=== PATIENT | male | born 1935 | race Caucasian/White ===

== ENCOUNTER 2017-04-21 11:49 | Emergency (ER) | payer MEDICARE ==
[~2017-04-21] VITALS: Ht 177.8 cm; Wt 68.3 kg
[~2017-04-21 11:49] MED LIST: ASPI325T PO; ATOR40TA PO; BUDE10.22 INH; LISI2.5T2 PO; METO50TA5 PO; MINO100C43 PO; TAMS0.4C47 PO
--- OUTSIDE RECORDS SUMMARY | 2017-04-21 11:55 | XMS REPORT | Referral Summary ---
Author Author [facility] Organization [facility] Address Unknown Phone Unavailable Encounter VC PAREDES [id number] Date(s): 06/25/15 - 07/08/15 [facility] [address] [place] [address] Final: ACUTE MYOCARDIAL INFARCTION, OF OTHER ANTERIOR WALL, INITIAL EPISODE OF CARE Final: URINARY TRACT INFECTION, SITE NOT SPECIFIED Final: ACUTE POSTHEMORRHAGIC ANEMIA Final: Other respiratory complications Final: Other specified forms of effusion, except tuberculous Final: OTHER EMPHYSEMA Final: CORONARY ATHEROSCLEROSIS OF [place] CORONARY ARTERY Final: RETENTION OF URINE, UNSPECIFIED Final: OTHER AND UNSPECIFIED HYPERLIPIDEMIA Final: TACHYCARDIA, UNSPECIFIED Final: SURGICAL OPERATION WITH ANASTOMOSIS, BYPASS, OR GRAFT, WITH NATURAL OR ARTIFICIAL TISSUES USED IMPLANT CAUSING ABNORMAL PATIENT REACTION, OR LATER COMPLICATION, WITHOUT MENTION OF MISADVENTURE AT TIME OF OPERATION Final: ACCIDENTS OCCURRING IN RESIDENTIAL INSTITUTION Discharge Diagnosis: CAD (coronary artery disease) Discharge Diagnosis: S/P CABG x 4 Discharge Disposition: 01-Home or Self Care Attending Physician: Miguelito Donovan MD Admitting Physician: Miguelito Donovan MD Vital Signs Most recent to 1 oldest [Reference Range]: Temperature Axillary 37.4 degC [35.2-36.7 degC] *HI* (07/06/15 8:00 PM) Temperature Oral 36.6 degC [35.8-37.3 degC] (07/08/15 12:43 PM) Temperature Tympanic 37.4 degC [36.6-38.1 degC] (07/05/15 1:14 AM) Temperature Skin 37.3 degC [36-37 degC] *HI* (07/04/15 4:00 AM) Temperature Temporal 37.4 degC Artery [36.3-37.8 (07/05/15 8:00 AM) degC] Peripheral Pulse 102 bpm Rate [60-100 bpm] *HI* (07/08/15 12:43 PM) Peripheral Pulse 106 bpm Rate with Activity (07/07/15 2:09 PM) Heart Rate Monitored 99 bpm [60-100 bpm] (07/07/15 10:37 AM) Respiratory Rate 20 br/min [14-20 br/min] (07/08/15 12:43 PM) Blood Pressure 98/63 mmHg [90-140/60-90 mmHg] (07/08/15 12:43 PM) Systolic Blood 121 mmHg Pressure with (07/07/15 2:09 PM) Activity Diastolic Blood 72 mmHg Pressure with (07/07/15 2:09 PM) Activity Mean Arterial 90 mmHg Pressure, Cuff (07/05/15 9:00 AM) Blood Pressure 107/40 mmHg Invasive (07/04/15 12:00 PM) [90-140/60-90 mmHg] Mean Arterial 171 mmHg Pressure, Invasive (07/04/15 2:00 PM) Pulse Rate [60-100 92 bpm bpm] (07/08/15 10:04 AM) SpO2 95 % (07/08/15 12:43 PM) Problem List Condition Effective Dates Status Health Status Informant Acute Active pain(Confirmed) At risk of pressure Active sore(Confirmed) Cardiac Active disorder(Confirmed)1 Knowledge Active deficit(Confirmed)2 Tissue perfusion Active alteration(Confirmed )3 1Problem added automatically by system based on initiation of Cardiac Output/ Ineffective Cardiac Perfusion Plan of Care 2Problem added automatically by system based on initiation of Knowledge Deficit Plan of Care 3Problem added automatically by system based on initiation of Tissue Perfusion Cerebral Plan of Care Allergies, Adverse Reactions, Alerts No Known Allergies Medications acetaminophen 325 mg oral tablet 650 mg 2 tabs, Oral, q4hr, Fever, 0 Refill(s) Start Date: 07/08/15 Status: Ordered aspirin 81 mg oral delayed release tablet 81 mg 1 tabs, Oral, Daily, 0 Refill(s) Start Date: 07/08/15 Status: Ordered Chloraseptic Menthol 1.4% topical spray 1 sprays, Topical, q1hr, Sore Throat, 0 Refill(s) Start Date: 07/08/15 Status: Ordered Colace 100 mg oral capsule 200 mg 2 caps, Oral, Daily, 0 Refill(s) Start Date: 07/08/15 Status: Ordered Flomax 0.4 mg oral capsule 0.4 mg 1 caps, Oral, Daily, # 30 caps, 0 Refill(s), other reason (Rx) Start Date: 07/08/15 Status: Ordered lansoprazole 15 mg, Oral, Once, 0 Refill(s) Start Date: 06/25/15 Status: Ordered Lasix 20 mg oral tablet 20 mg 1 tabs, Oral, Daily, # 30 tabs, 0 Refill(s), other reason (Rx) Start Date: 07/08/15 Status: Ordered Lipitor 40 mg oral tablet 40 mg 1 tabs, Oral, Daily, # 30 tabs, 0 Refill(s), other reason (Rx) Start Date: 07/08/15 Status: Ordered Lopressor 50 mg oral tablet 25 mg 0.5 tabs, Oral, TID, # 45 tabs, 0 Refill(s), other reason (Rx) Start Date: 07/08/15 Status: Ordered [place] 5 mg-325 mg oral tablet 1 tabs, Oral, q6hr, as needed for pain, 0 Refill(s) Start Date: 06/25/15 Status: Ordered ocular lubricant Eye-Both, q4hr, Dry Eyes, 0 Refill(s) Start Date: 07/08/15 Status: Ordered potassium chloride 20 mEq oral tablet, extended release 20 mEq 1 tabs, Oral, BID, # 60 tabs, 0 Refill(s), other reason (Rx) Start Date: 07/08/15 Status: Ordered Symbicort 160 mcg-4.5 mcg/inh inhalation aerosol 2 puffs, Inhalation, BID, 0 Refill(s) Start Date: 06/25/15 Status: Ordered Results Blood Gases Most recent to 1 oldest [Reference Range]: pH [7.35-7.45] 7.41 (07/04/15 4:28 AM) PCO2 Arterial POC 45 mmHg [35-45 mmHg] (07/03/15 2:43 PM) pCO2 Art [35-45 30 mmHg mmHg] *LOW* (07/04/15 4:28 AM) CO2 Totl Art [23-27 26 mEq/L mEq/L] (07/03/15 2:43 PM) Bicarbonate [22-26 19 mEq/L mEq/L] *LOW* (07/04/15 4:28 AM) Bicarbonate Arterial 25 mEq/L POC [22-26 mEq/L] (07/03/15 2:43 PM) Base Excess Arterial -1 POC [0-2] *LOW* (07/03/15 2:43 PM) Base Excess Art -5 [0-2] *LOW* (07/04/15 4:28 AM) O2 Sat Art 93.1 % [90.0-97.0 %] (07/04/15 4:28 AM) pO2 Art [80-100 68 mmHg mmHg] *LOW* (07/04/15 4:28 AM) O2 Saturation 100.0 % Arterial POC *HI* [90.0-97.0 %] (07/03/15 2:43 PM) pH Arterial POC 7.35 [7.35-7.45] (07/03/15 2:43 PM) PO2 Arterial POC 292 mmHg [80-100 mmHg] *HI* (07/03/15 2:43 PM) LPM Art 2.0 L/min (07/04/15 4:28 AM) O2 Panel Nasal Cannula (07/04/15 4:28 AM) Vent Mode SIMV (07/03/15 3:53 PM) Set Vt 450 mL (07/03/15 3:53 PM) Set Rate 12 br/min (07/03/15 3:53 PM) FiO2 Art [0-100] 40 (07/03/15 8:50 PM) PEEP 5.0 (07/03/15 8:50 PM) Inspiratory Time Art 0.90 (07/03/15 3:53 PM) Pressure Support Art 10 (07/03/15 3:53 PM) Tubing Compensation 100 % (07/03/15 8:50 PM) Spec Site A-Line (07/04/15 4:28 AM) pH Venous POC 7.27 [7.32-7.42] *LOW* (07/03/15 2:14 PM) PCO2 Venous POC 41 mmHg [41-51 mmHg] (07/03/15 2:14 PM) PO2 Venous POC 50 mmHg [80-100 mmHg] *LOW* (07/03/15 2:14 PM) Total CO2 Venous POC 20 mEq/L [25-29 mEq/L] *LOW* (07/03/15 2:14 PM) Bicarbonate Venous 19 mEq/L POC [24-28 mEq/L] *LOW* (07/03/15 2:14 PM) Base Excess Venous -8 POC [0-4] *LOW* (07/03/15 2:14 PM) O2 Saturation Venous 79.0 % POC [90.0-97.0 %] *LOW* (07/03/15 2:14 PM) Hematology Most recent to 1 oldest [Reference Range]: WBC [4.8-10.8 10.8 10*3/uL 10*3/uL] (07/07/15 5:43 AM) RBC [4.60-6.20 3.05 10*6/uL 10*6/uL] *LOW* (07/07/15 5:43 AM) Hgb [14.0-18.0 8.9 gm/dL gm/dL] *LOW* (07/07/15 5:43 AM) Hct [42.0-52.0 %] 26.8 % *LOW* (07/07/15 5:43 AM) MCV [82.0-99.0 fL] 87.9 fL (07/07/15 5:43 AM) MCH [27.0-32.0 pg] 29.2 pg (07/07/15 5:43 AM) MCHC [32.0-36.0 33.2 gm/dL gm/dL] (07/07/15 5:43 AM) RDW [11.5-14.5 %] 14.4 % (07/07/15 5:43 AM) Platelet [150-400 281 10*3/uL 10*3/uL] (07/07/15 5:43 AM) MPV [9.4-12.3 fL] 10.5 fL (07/07/15 5:43 AM) Immature 0.7 % Granulocytes (07/04/15 3:38 AM) [0.0-1.0 %] Neutrophils [51-75 80 % %] *HI* (07/04/15 3:38 AM) Lymphocytes [20-46 8 % %] *LOW* (07/04/15 3:38 AM) Monocytes [4-11 %] 11 % (07/04/15 3:38 AM) Eosinophils [0-4 %] 0 % (07/04/15 3:38 AM) Basophils [0-2 %] 0 % (07/04/15 3:38 AM) Neutro Absolute 8.49 10*3 [1.90-7.00 10*3] *HI* (07/04/15 3:38 AM) Lymph Absolute 0.88 10*3 [0.80-3.30 10*3] (07/04/15 3:38 AM) [place] Absolute 1.17 10*3 [0.30-1.00 10*3] *HI* (07/04/15 3:38 AM) Eos Absolute 0.02 10*3 [0.00-0.50 10*3] (07/04/15 3:38 AM) Baso Absolute 0.03 10*3 [0.00-0.20 10*3] (07/04/15 3:38 AM) Nucleated RBC 0.0 /100 WBC Automated [0 /100 (07/04/15 3:38 AM) WBC] Coagulation Most recent to 1 oldest [Reference Range]: INR [0.9-1.2] 1.3 *HI* (07/06/15 7:14 PM) PTT [25.0-35.0] 29.5 (07/06/15 7:14 PM) Fibrinogen Lvl 270 mg/dL [187-520 mg/dL] (07/03/15 2:12 PM) Chemistry Most recent to 1 oldest [Reference Range]: Sodium Lvl [136-144 138 mEq/L mEq/L] (07/07/15 5:43 AM) Potassium Lvl 4.4 mEq/L [3.6-5.1 mEq/L] (07/07/15 5:43 AM) Chloride [99-109 107 mEq/L mEq/L] (07/07/15 5:43 AM) CO2 [22-32 mEq/L] 23 mEq/L (07/07/15 5:43 AM) AGAP [3-20] 8 (07/07/15 5:43 AM) BUN [4-20 mg/dL] 30 mg/dL *HI* (07/07/15 5:43 AM) Glucose Lvl [70-100 101 mg/dL mg/dL] *HI* (07/07/15 5:43 AM) Creatinine Lvl 1.24 mg/dL [0.64-1.27 mg/dL] (07/07/15 5:43 AM) eGFR [>60] 56 1 *ABN* (07/07/15 5:43 AM) Calcium Lvl 8.4 mg/dL [8.6-10.0 mg/dL] *LOW* (07/07/15 5:43 AM) Albumin Lvl [3.5-4.8 3.5 gm/dL gm/dL] (06/25/15 1:29 PM) Total Protein 6.4 gm/dL [6.1-7.9 gm/dL] (06/25/15 1:29 PM) Globulin [1.9-4.3 2.9 gm/dL gm/dL] (06/25/15 1:29 PM) ALT [17-63 U/L] 31 U/L (06/25/15 1:29 PM) AST [15-41 U/L] 135 U/L *HI* (06/25/15 1:29 PM) Alk Phos [26-104 72 U/L U/L] (06/25/15 1:29 PM) Bili Total [0.2-1.2 0.7 mg/dL 2 mg/dL] (06/25/15 1:29 PM) Magnesium Lvl 2.1 mg/dL [1.8-2.5 mg/dL] (07/05/15 3:52 AM) Calcium Ionized 1.25 mmol/L [1.19-1.41 mmol/L] (07/05/15 3:52 AM) Troponin [<0.06 2.05 ng/mL 3 ng/mL] *HHI* (07/02/15 5:53 AM) Prealbumin [18-38 11 mg/dL mg/dL] *LOW* (07/02/15 5:53 AM) Sodium Arterial NPT 140 mEq/L [136-144 mEq/L] (07/03/15 2:43 PM) Potassium Arterial 4.6 mEq/L 4 NPT [3.6-5.1 mEq/L] (07/03/15 2:43 PM) Calcium Ionized 1.23 mmol/L Arterial NPT (07/03/15 2:43 PM) [1.19-1.41 mmol/L] HCT Arterial NPT 26.0 % (07/03/15 2:43 PM) HGB Arterial NPT 8.8 gm/dL (07/03/15 2:43 PM) Arterial Glucose NPT 89 mg/dL [70-100 mg/dL] (07/03/15 2:43 PM) Sodium Venous NPT 143 mEq/L [136-144 mEq/L] (07/03/15 2:14 PM) Potassium Venous NPT 4.2 mEq/L 5 [3.6-5.1 mEq/L] (07/03/15 2:14 PM) Calcium Ionized 1.26 mmol/L Venous NPT (07/03/15 2:14 PM) [1.19-1.41 mmol/L] Glucose Venous NPT 84 mg/dL [70-100 mg/dL] (07/03/15 2:14 PM) HCT Venous NPT 22.0 % (07/03/15 2:14 PM) HGB Kenneth NPT 7.5 gm/dL (07/03/15 2:14 PM) Activated Clotting 118 Time NPT [100-146] (07/03/15 2:13 PM) Blood Glucose, 117 mg/dL Capillary [74-106 *HI* mg/dL] (07/05/15 6:00 AM) Chol [0-200 mg/dL] 134 mg/dL (06/26/15 4:00 AM) Trig [0-150 mg/dL] 93 mg/dL (06/26/15 4:00 AM) HDL [>40 mg/dL] 37 mg/dL *ABN* (06/26/15 4:00 AM) LDL [0-100 mg/dL] 78 mg/dL (06/26/15 4:00 AM) VLDL Cholesterol 19 mg/dL [0-30 mg/dL] (06/26/15 4:00 AM) Cardiac Risk 3.6 [0.0-5.7] (06/26/15 4:00 AM) Hgb A1c [4.1-5.6 %] 5.7 % *HI* (07/02/15 5:53 AM) eAvg Glucose 116.9 mg/dL (07/02/15 5:53 AM) 1Result Comment: Multiply eGFR results by 1.21 for race. 2Result Comment: Naproxen, specifically the metabolite O-desmethylnaproxen, may cause spurious elevation in Total Bilirubin levels. 3Result Comment: Critical value called, and read-back verified. Called to Shea Baltazar RN ([facility]) 07/02/2015 10:50 4Result Comment: This test was performed on a whole blood specimen. The presence or absence of hemolysis cannot be assessed. Hemolysis can falsely elevate potassium levels. Normals are for venous specimens only. 5Result Comment: This test was performed on a whole blood specimen. The presence or absence of hemolysis cannot be assessed. Hemolysis can falsely elevate potassium levels. Normals are for venous specimens only. Urinalysis Most recent to 1 oldest [Reference Range]: UA Color Dk Yellow (07/01/15 2:43 PM) UA Appear Clear (07/01/15 2:43 PM) UA pH [5.0-8.0] 5.0 (07/01/15 2:43 PM) UA Leuk Est Trace [Negative] *ABN* (07/01/15 2:43 PM) UA Nitrite Negative [Negative] (07/01/15 2:43 PM) UA Protein Pos 1+ [Negative] *ABN* (07/01/15 2:43 PM) UA Glucose Negative [Negative] (07/01/15 2:43 PM) UA Ketones Trace [Negative] *ABN* (07/01/15 2:43 PM) UA Urobilinogen 1.0 mg/dL [<1.0 mg/dL] (07/01/15 2:43 PM) UA Bili [Negative] Negative (07/01/15 2:43 PM) UA Blood [Negative] Pos 3+ *ABN* (07/01/15 2:43 PM) UA Spec Grav 1.025 [1.003-1.030] (07/01/15 2:43 PM) Type Melgoza (07/01/15 2:43 PM) UA WBC [0-4] 2-5 (07/01/15 2:43 PM) UA RBC [0-2] 20-50 *ABN* (07/01/15 2:43 PM) Epithelial Cells 0-2 (07/01/15 2:43 PM) UA Bacteria Rare (07/01/15 2:43 PM) UA Mucous Present (07/01/15 2:43 PM) Blood Bank Results Most recent to 1 oldest [Reference Range]: ABO/Rh A POS (07/02/15 5:53 AM) Antibody Screen Tube NEG (07/02/15 5:53 AM) Microbiology Reports TEST: MRSA Screen Culture STATUS: Auth (Verified) BODY SITE: SOURCE: Nares COLLECTED DATE/TIME: 07/01/15 8:58 PM MRSA Screen Culture No Methicillin Resistant Staphylococcus aureus isolated. Immunizations No data available for this section Procedures Procedure Date Related Diagnosis Body Site Thoracentesis, needle or catheter, aspiration 07/07/15 of the pleural space; with imaging guidance Bypass Graft Coronary Artery1 07/03/15 [place] Vein Endoscopic (Right, Lower 07/03/15 Extremity)2 Hernia Rotator cuff tear3 1auto-populated from documented surgical case 2auto-populated from documented surgical case 3rotator cuff surgery to lanie taylor Social History Social History Type Response Smoking Status Former smoker; Type: Cigarettes; Tobacco use per day: More than 1 pack; Number of years: 40 Assessment and Plan No data available for this section
--- OUTSIDE RECORDS SUMMARY | 2017-04-21 11:55 | XMS REPORT | Continuity of Care Document ---
Author Author [facility] Organization [facility] Address Unknown Phone Unavailable Allergies Active Description Code Type Severity Reaction Onset Reported/Identified Relationship to Patient Clinical Status Yes No Known Allergies NKMA N/A N/A 06/25/2015 Yes No Known Medication Allergies NKMA N/A N/A 06/25/2015 Medications Problems Date Dx Coded Attending Type Code Diagnosis Diagnosed By 07/10/2015 Miguelito Donovan MD Final 272.4 OTHER AND UNSPECIFIED HYPERLIPIDEMIA 07/10/2015 Miguelito Donovan MD Final 285.1 ACUTE POSTHEMORRHAGIC ANEMIA 07/10/2015 Miguelito Donovan MD Final 410.11 ACUTE MYOCARDIAL INFARCTION, OF OTHER ANTERIOR WALL, INITIAL EPISODE OF CAR 07/10/2015 Miguelito Donovan MD Admitting 410.91 07/10/2015 Miguelito Donovan MD Final 414.01 CORONARY ATHEROSCLEROSIS OF [place] CORONARY ARTERY 07/10/2015 Miguelito Donovan MD Final 492.8 OTHER EMPHYSEMA 07/10/2015 Miguelito Donovan MD Final 511.89 Other specified forms of effusion, except tuberculous 07/10/2015 Miguelito Donovan MD Final 599.0 URINARY TRACT INFECTION, SITE NOT SPECIFIED 07/10/2015 Miguelito Donovan MD Final 785.0 TACHYCARDIA, UNSPECIFIED 07/10/2015 Miguelito Donovan MD Final 788.20 RETENTION OF URINE, UNSPECIFIED 07/10/2015 Miguelito Donovan MD Final 997.39 Other respiratory complications 07/10/2015 Miguelito Donovan MD Final E849.7 ACCIDENTS OCCURRING IN RESIDENTIAL INSTITUTION 07/10/2015 Miguelito Donovan MD Final E878.2 SURGICAL OPERATION WITH ANASTOMOSIS, BYPASS, OR GRAFT, WITH NATURAL OR DARVIN Procedures Code Description Performed By Performed On 00.40 Procedure on single vessel 06/25/2015 Results Encounters ACCT No. Visit Date/Time Discharge Status Pt. Type Provider Facility Loc./Unit Complaint [id number] 06/25/2015 12:56:00 2014 15:30:00 DIS Inpatient Venus MARIN, Miguelito [facility] F4SW acute [place]
[2017-04-21 11:57] VITALS: RESP 17; TEMP 97.4; Ht 177.8 cm; Wt 68.3 kg
[2017-04-21] MEDS ORDERED: ATOR20TA59 PO (12:25)
[2017-04-21] MEDS ORDERED: NORMAL SALINE 1,000 ML IV ONE (12:26)
--- NOTE | 2017-04-21 12:26 | ERPDOC ---
Departure Disposition Decision Date: April 21, 2017 Disposition Decision Time: 14:39 Disposition: 01 DISCHARGED HOME, SELF-CARE Impression Impression Impression: Primary Impression: Obstructive uropathy Severity: Moderate Condition: Improved Seen By: Physician only Referrals: OTHER (Family) DOMITILA LACEY MD Patient Instructions: Melgoza Catheter Placement and Care (ED) Problems/Meds/Labs Reviewed?: Yes Medications reviewed and manag: Yes Additional Instructions: Please keep catheter in place until you see urology. Recommend he follow up with urology in the next 3 days. Follow up care ordered?: Yes Mental Status: Alert, Oriented HPI - Male General Chief Complaint: Male Urogenital Problems Stated Complaint: UNABLE TO URINATE Time Seen by Provider: 12:12 HPI - Male Initial Comments 82-year-old gentleman with approximately 2 weeks of urinary issues. He is actually not been able to P except for small dribble over the last 2 days. His stomach is distended and quite painful. No fevers or chills. No nausea vomiting. Pain is 8-9 out of 10. He has not had this before, as far as he knows he has no prostate problems. He was recently started on Bumex and when they read the label with the warning that if your urine output decreases he would need to speak with his doctor, they called the office and were sent to the emergency department. Allergies: Coded Allergies: No Known Allergies (Unverified , 04/21/17) Past History Past Medical History Metabolic: hypercholesterolemia Cardiac: CAD, CHF, other Respiratory: COPD GI: GERD Musculoskeletal: osteoarthritis Surgical History Denies Surgeries General: hernia Cardiac: cardiac bypass Joint: shoulder Family History Family PMH: FOUND: CAD Vaccines Hx Influenza Vaccination: Yes () Hx Pneumococcal Vaccination: Yes (IN THE LAST 5 YEARS) Social History Smoking Status: Never smoker Substance Use Type: does not use Alcohol Intake: none Record Review Pertinent history updated: Yes Review of Systems General: see HPI Male: see HPI Physical Exam General General Nourishment: adult, thin, acute distress Distress Description Stresses from pain. Vitals and Pain First Documented Vital Signs Date Time Temp Pulse Resp B/P Pulse Ox O2 Delivery O2 Flow Rate FiO2 04/21/17 11:57 97.4 71 17 114/69 93 Room Air Weight: Kilograms: 68.300 Height (feet): 5 Height (inches): 10.00 Triage Pain Scale: Normal Exams: Head: Normocephalic w/o trauma Chest/Resp: Clear all chaudhari, with good airflow, and symmetry bilaterally CV: Regular rate and rhythm, without murmur or gallop, Pulses 2+ all extremities, capillary refill, <2 seconds all ext., no pedal edema noted Abdomen: Bowel sounds positive Neurologic: Patient is alert, and oriented, cranial nerves, motor/sensory/ cerebellar, exams w/o gross deficits, to observation Psychiatric: Patient exhibits, appropriate attention, emotion and affect Abdomen (brief) Comments Positive bowel sounds, patient's pelvis is distended with obvious mass palpable and painful. Differential Diagnoses Considering: Epididymitis, Hematuria, Prostatitis, Urethritis, UTI Progress Results/Orders Orders Procedure Category Date Status Time Iv Lock (Ed Only) EDM 04/21/17 Transmitted 12:26 Cbc W/Auto LAB 04/21/17 Complete Diff-Reflex Manual 12:26 Cmp - Comprehensive LAB 04/21/17 Complete Metabolic 12:26 Ua, Dip Wreflex LAB 04/21/17 Complete Microsc & Business Architect 12:26 Ct Abd/Pelvis W/O CT 04/21/17 Resulted Contrast 12:26 Melgoza (Ed) EDM 04/21/17 Transmitted 12:26 Normal Saline (Normal PHA 04/21/17 Complete Saline Iv) 12:26 Catheter Needs ISIDRO 04/21/17 In Process Assessment 12:26 Bladder Scanner (Ed) EDM 04/21/17 Transmitted 12:26 Psa, Screen Total - LAB 04/21/17 In Process AMS 12:26 Normal Saline (Ns) PHA 04/21/17 Complete 14:15 Probnp LAB 04/21/17 In Process 14:12 Lab Results Laboratory Tests Test 04/21/17 12:39 White Blood Count 6.2T/MM3 Red Blood Count 4.52M/MM3 Hemoglobin 12.3GM/DL Hematocrit 37.6% Mean Corpuscular Volume 83.2UM3 Mean Corpuscular Hemoglobin 27.2UUG Mean Corpuscular Hemoglobin Concent 32.7GM/DL RDW Standard Deviation 54.9FL Platelet Count 140T/MM3 Mean Platelet Volume 10.9UM3 Immature Granulocyte % (Auto) 0.2% Neutrophils (%) (Auto) 58.5% Lymphocytes (%) (Auto) 27.7% Monocytes (%) (Auto) 11.8% Eosinophils (%) (Auto) 1.6% Basophils (%) (Auto) 0.2% Absolute Immature Granulocyte (auto 0.01T/MM3 Absolute Neutrophils (auto) 3.6T/MM3 Absolute Lymphocytes (auto) 1.7T/MM3 Absolute Monocytes (auto) 0.7T/MM3 Absolute Eosinophils (auto) 0.1T/MM3 Absolute Basophils (auto) 0.0T/MM3 Urine Collection Type Straight cath Urine Color Yellow Urine Turbidity Clear Urine pH 5.5 Urine Specific [place] <=1.005 Urine Protein Negative Urine Glucose (UA) Negative Urine Ketones Negative Urine Blood Trace-intact Urine Nitrite Negative Urine Bilirubin Negative Urine Urobilinogen 0.2EU/DL Urine Leukocyte Esterase Negative Urinalysis Comment Microscopic not ind. Turbidity < 20 Sodium Level 138MEQ/L Potassium Level 4.5MEQ/L Chloride Level 97MEQ/L Carbon Dioxide Level 28MEQ/L Anion Gap 13MEQ/L Blood Urea Nitrogen 47.0MG/DL Creatinine 1.8MG/DL Glomerular Filtration Rate Calc 36 BUN/Creatinine Ratio 26RATIO Glucose Level 86MG/DL Calculated Osmolality 277MOSM/KG Calcium Level 9.3MG/DL Total Bilirubin 1.20MG/DL Icterus Index < 2 Aspartate Amino Transf (AST/SGOT) 24U/L Alanine Aminotransferase (ALT/SGPT) 36U/L Alkaline Phosphatase 98U/L GG-Bgo-H-Type Natriuretic Peptide Pending Total Protein 7.3G/DL Albumin 4.1G/DL Globulin 3.2G/DL Albumin/Globulin Ratio 1.3RATIO Prostate Specific Antigen Screen Pending Chemistry Specimen Hemolysis < 15 Medications Current ED Medications Sodium Chloride 1,000 ml @ 500 mls/hr Q2H ONCE IV Last administered on t 12:48; Start 04/21/17 at 12:26; Stop 04/21/17 at 14:25; Status DC Sodium Chloride (NS) 500 ml @ 0 mls/hr Q0M ONCE IV ; Start 04/21/17 at 14:15; Stop 04/21/17 at 14:20; Status DC Progress Progress Obstructive uropathy noted. CT abdomen and pelvis is negative except for enlargement of bladder. Melgoza catheter placed and Patient had greater than 3 L total removed from bladder through Melgoza catheter. This was done in stages to allow the bladder to relax. He did have elevated creatinine and BUN. I think he is intravascularly depleted while fluid overloaded as far as congestive heart failure. Recommend he continue the Bumex at half dose but increase fluids until he sees urology. He would like to go home and I think this is reasonable to treat outpatient as long as he follows up carefully. HUMBLE STRINGER MD April 21, 2017 12:26
[2017-04-21] MEDS ORDERED: LISI-625 PO (12:27)
[2017-04-21] MEDS ORDERED: METO100T5 PO (12:27)
[2017-04-21] MEDS ORDERED: BUME1TAB17 PO (12:28)
[2017-04-21] MEDS ORDERED: POTA-81 PO (12:28)
--- NOTE | 2017-04-21 12:33 | NUR ---
RAMESH RAMESH CLAMPED AFTER 2600 ML UOP
[2017-04-21 12:54] LABS: BASOPHILS % (AUTO) 0.2 % (0-2); EOSINOPHILS # (AUTO) 0.1 T/MM3 (0-0.5); EOSINOPHILS % (AUTO) 1.6 % (0-4); HCT - HEMATOCRIT 37.6 % (41-53); HGB - HEMOGLOBIN 12.3 GM/DL (13.5-17.5); IMMATURE GRANULOCYTE # (AUTO) 0.01 T/MM3 (0.00-0.03); IMMATURE GRANULOCYTE % (AUTO) 0.2 % (0.0-0.5); LYMPHOCYTES # (AUTO) 1.7 T/MM3 (1-4.8); LYMPHOCYTES % (AUTO) 27.7 % (23-45); MEAN CORPUSCULAR HGB 27.2 UUG (26-34); MEAN CORPUSCULAR HGB CONC(MCHC 32.7 GM/DL (31-37); MEAN CORPUSCULAR VOLUME 83.2 UM3 (80-100); MEAN PLATELET VOLUME 10.9 UM3 (9.4-12.4); MONOCYTES # (AUTO) 0.7 T/MM3 (0-0.8); MONOCYTES % (AUTO) 11.8 % (0-9.0); NEUTROPHILS #(AUTO)-ABSOLUTE 3.6 T/MM3 (1.8-7.7); NEUTROPHILS % (AUTO) 58.5 % (33-66); RED BLOOD COUNT 4.52 M/MM3 (4.50-5.90); WBC - WHITE BLOOD COUNT 6.2 T/MM3 (4.5-11.0)
[2017-04-21 12:56] LABS: BLOOD, URINE TRACE-INTACT (NEGATIVE); COLOR,URINE YELLOW (YELLOW); LEUKOCYTE ESTERASE ,URINE NEGATIVE (NEGATIVE); NITRITE,URINE NEGATIVE (NEGATIVE); UROBILINOGEN,URINE 0.2 EU/DL (NORMAL)
[2017-04-21 13:08] LABS: ALBUMIN 4.1 G/DL (3.5-5.0); ALBUMIN/GLOBULIN RATIO 1.3 RATIO (1.1-2.2); ALKALINE PHOSPHATASE 98 U/L (38-126); ALT (SGPT) 36 U/L (21-72); ANION GAP 13 MEQ/L (5-15); AST (SGOT) 24 U/L (17-59); BUN/CREATININE RATIO 26 RATIO (6-26); CALCIUM 9.3 MG/DL (8.4-10.2); CHLORIDE 97 MEQ/L (98-107); CO2 - CARBON DIOXIDE 28 MEQ/L (22-30); CREATININE 1.8 MG/DL (0.8-1.5); GLOMERULAR FILTRATION RATE 36; GLUCOSE 86 MG/DL (75-110); POTASSIUM 4.5 MEQ/L (3.6-5); SODIUM 138 MEQ/L (134-144); TOTAL PROTEIN 7.3 G/DL (6.3-8.2)
--- OUTSIDE RECORDS SUMMARY | 2017-04-21 13:15 | XMS REPORT | Continuity of Care Document ---
Author Author [facility] Organization [facility] Address Unknown Phone Unavailable Allergies Active [...] Donovan MD Final 414.01 CORONARY ATHEROSCLEROSIS OF [place] CORONARY ARTERY 07/10/2015 Miguelito Donovan MD Final [...] Status Pt. Type Provider Facility Loc./Unit Complaint [id number] 06/25/2015 12:56:00 2014 15:30:00 DIS Inpatient Venus MARIN, Miguelito [facility] F4SW acute [place]
--- NOTE | 2017-04-21 13:35 | NUR ---
RAMESH RAMESH UNCLAMPED
--- NOTE | 2017-04-21 13:56 | DI ---
Indication: ITS.REASON: urinary retention, pain CT ABD/PELVIS W/O CONTRAST: Comparison: None Technique: Patient scanned from above the diaphragm to below the pubic symphysis without either oral or IV contrast using dose reduction imaging technology and reformatted sagittal and coronal images. Findings: Patient shows chronic changes in both lung bases with an enlarged heart and a permanent pacemaker in place. Liver is homogeneous in texture. No biliary ductal dilatation identified. Believe the gallbladder is still visualized. The patient shows multiple vascular clips about the right side of the abdomen. Spleen is unremarkable. Pancreas and adrenals are unremarkable. Both kidneys are visualized without marked obstructive change mass cysts or calcifications. Arteriosclerotic calcifications identified in a nondilated aorta. Imaging into the pelvis demonstrates a distended bladder with a catheter in place. Reformatted imaging showed degenerative disc changes particularly prominent at L4-5 and L5-S1 in the lumbar spine Impression: 1. Fairly significant chronic lung disease with an enlarged heart with a permanent pacemaker although, no pleural effusions are identified. 2. Prior postoperative changes in the right side of the abdomen although, no suggestion of obstruction or acute inflammatory change noted in the bowel. 3. No obstructive uropathy identified although, the bladder does seem distended with a catheter in place. .
--- NOTE | 2017-04-21 14:05 | NUR ---
PROVIDER DR STRINGER TO BEDSIDE TO DISCUSS POC
--- NOTE | 2017-04-21 14:06 | NUR ---
UOP 750 ML PALE YELLOW URINE OUT OF RAMESH
--- NOTE | 2017-04-21 14:07 | NUR ---
IV RATE IVF INCREASED TO 999ML/HR
[2017-04-21] MEDS ORDERED: NORMAL SALINE 500 ML IV ONE (14:15)
[2017-04-21 15:24] VITALS: BP 99/54; PULSE 60; O2SAT 96
--- NOTE | 2017-04-21 15:25 | NUR ---
URINE BAG LEG BAG GIVEN, RN CHANGES BAG INSTRUCTING PATIENT ON HOW TO CHANGE BAG.
== END 2017-04-21 15:24 | disposition home or self-care (01) ==
LOC: ED 11:49
DX: N13.9 Obstructive and reflux uropathy, unspecified (principal); R19.09 Other intra-abdominal and pelvic swelling, mass and lump; Z79.899 Other long term (current) drug therapy
CPT/HCPCS: 51702; 74176; 80053; 81003; 83880; 85025; 96360; 96361; 99284; G0103; J7030

== ENCOUNTER 2017-08-19 12:37 | Observation (INO) ==
--- NOTE | 2017-08-19 13:08 | Emergency Department Report ---
General Adult HPI - General Chief complaint: Extremity Problem,Nontraumatic <Ben Pisano Kraig 08/19/17 16: 56> Stated complaint: Pain in L arm, confused <Ben Pisano Kraig 08/19/17 16:56> Time Seen by Provider: 08/19/17 12:44 <PisanoBen 08/19/17 16:56> Source: patient <Chelsea Smith 08/19/17 13:10> Mode of arrival: wheelchair <Chelsea Smith Sonya 08/19/17 13:10> Limitations: no limitations <Chelsea Smith Sonya Hallie 08/19/17 13:10> - History of Present Illness HPI narrative: Pt presents with a C/O arm weakness and pain, primarily left but has been both for about 1 week. Unable to use turn signal this am 2/2 weakness. Pt denies, chest pain, nausea, SOA, blurred or double vision, diaphoresis, CROCKETT, HE states nothing makes the pain worse or better. Has not taken anything for pain. Has extensive cardiac history <Chelsea Smith Sonya 08/19/17 13:10> Onset (ago): day(s) <Chelsea Smith 08/19/17 13:10> Location: upper extremity <Chelsea Smith 08/19/17 13:10> Radiation: non-radiation <Chelsea Smith 08/19/17 13:10> Severity: mild <Chelsea Smith 08/19/17 13:10> Quality: other <Chelsea Smith 08/19/17 13:10> Consistency: constant <Chelsea Smith 08/19/17 13:10> Relieving factors: none <Chelsea Smith 08/19/17 13:10> Exacerbating factors: none <Chelsea Smith 08/19/17 13:10> Associated symptoms: denies other symptoms <Chelsea Smith 08/19/17 13: 10> - Related Data Home Medications Medication Instructions Recorded Confirmed Aspirin 325 mg PO DAILY #0 tab 11/30/15 08/19/17 Budesonide/Formoterol 80/4.5 2 puff INH BID PRN #0 gm 12/05/15 08/19/17 [Symbicort Inhaler] Atorvastatin Calcium 10 mg PO HS #0 04/21/17 08/19/17 Bumetanide 0.5 mg PO BID #0 04/21/17 08/19/17 Metoprolol Tartrate 50 mg PO BIDWM #0 04/21/17 08/19/17 Potassium Chloride 20 meq PO WB #0 04/21/17 08/19/17 Finasteride [Proscar] 5 mg PO DAILY 08/19/17 08/19/17 <Ben Pisano 08/19/17 16:56> Allergies Allergy/AdvReac Type Severity Reaction Status Date / Time No Known Allergies Allergy Unverified 08/19/17 12:51 <Ben Pisano 08/19/17 16:56> Review of Systems All systems: reviewed and negative except as stated <Chelsea Smith 13:10> Constitutional: Reports: weakness <Chelsea Smith 08/19/17 13:10> Respiratory: Reports: dyspnea (COPD hx) <Chelsea Smith 08/19/17 13:10> Genitourinary: Reports: other (self caths) <Chelsea Smith 08/19/17 13: 10> Musculoskeletal: Reports: as per HPI <Chelsea Smith 08/19/17 13:10> PFSH Patient Stated Medical History Cataracts Yes Hypertension Yes Myocardial Infarction Yes Chronic Obstructive Pulmonary Yes Disease (COPD) Other Respiratory Yes: ASBESTOS LUNG DAMAGE Other Yes: SELF CATHETERIZES <Ben Pisano 08/19/17 16:56> - Social History Smoking status: Former smoker <Chelsea Smith 08/19/17 13:10> Physical Exam - Limitations Limitations: no limitations <Chelsea Smith 08/19/17 13:10> - General General appearance: alert, in no apparent distress <Chelsea Smith 08/19 13:10> - Normal Exams: Head:: Normocephalic without trauma <Chelsea Smith 08/19/17 13:10> Eyes:: Pupils are PERRLA w/ EOMI <Chelsea Smith 08/19/17 13:10> Neck:: Full range of motion, without adenopathy <Chelsea Smith 13:10> Chest/Respirations:: Clear all chaudhari, with good airflow, and symmetry bilaterally <Chelsea Smith 08/19/17 13:10> Cardiovascular:: Regular rate and rhythm, without murmur or gallop, Pulses 2+ all extremities, capillary refill, <2 seconds all extremities <Chelsea Smith 08/19/17 13:10> Abdomen:: Bowel sounds positive, soft, non-tender, non-distended <Chelsea Smith 08/19/17 13:10> Musculoskeletal:: No tenderness, or deformity noted, good range of motion < Chelsea Smith 08/19/17 13:10> Integumentary:: No rashes <Chelsea Smith 08/19/17 13:10> Neurological:: Patient is alert, and oriented <Chelsea Smith 08/19/17 13:10> Psychiatric:: Patient exhibits, appropriate attention, emotion and affect < Chelsea Smith 08/19/17 13:10> Course - Consultations Consultation #1: Dr Carrero <Chelsea Smith 08/19/17 14:40> Time: 14:26 (will send [employer] for eval) <Chelsea Smith 08/19/17 14:40> Vital Signs Temperature 98.2 F 08/19/17 12:52 Pulse Rate 59 L 08/19/17 12:52 Respiratory Rate 17 08/19/17 12:52 Blood Pressure 115/62 08/19/17 12:52 Pulse Oximetry 96 08/19/17 12:52 Temperature 98.2 F 08/19/17 12:52 Pulse Rate 64 08/19/17 15:45 Respiratory Rate 20 08/19/17 15:45 Blood Pressure 116/62 08/19/17 15:45 Pulse Oximetry 97 08/19/17 15:45 <Ben Pisano - 08/19/17 16:56> Medical Decision Making - MDM Narrative Medical decision making narrative: I saw and evaluated the patient in addition to the mid-level. Patient is admitted to the service of the hospitalist for further evaluation and treatment. Patient family are in agreement with the current plan of management. Patient is admitted to the service of Dr. Carrero for further evaluation and treatment. Patient had no focal neurologic deficit. Evaluation was unremarkable except for the abnormal CT scan of the head. <Ben Pisano C - 08/19/17 16:56> Notification from Dr Jaeger for cerebral edema which may be indicative for some type of brain mets. Dr Carrero notified and pt to be admitted for MRI and further evaluation. Pt continues to c/o weakness despite a negative assessment <Chelsea Smith R - 08/19/17 15:24> - Differential Diagnosis SD, ANgina, CVA, Radiculopathy <Chelsea Smith - 08/19/17 13:10> - Lab Data Result diagrams: 08/19/17 13:26 08/19/17 13:26 <Ben Pisano C - 08/19/17 16:56> Lab Results 08/19/17 08/19/17 08/19/17 Range/Units 13:24 13:26 13:26 WBC 7.5 (4.5-11.0) T/MM3 RBC 4.47 L (4.50-5.90) M/MM3 Hgb 13.0 L (13.5-17.5) GM/DL Hct 40.3 L (41-53) % MCV 90.2 (80-100) UM3 MCH 29.1 (26-34) UUG MCHC 32.3 (31-37) GM/DL RDW Std Deviation 42.3 (36.9-50.2) FL Plt Count 177 (130-400) T/MM3 MPV 10.5 (9.4-12.4) UM3 Immature Gran % (Auto) 0.3 (0.0-0.5) % Neut % (Auto) 61.7 (33-66) % Lymph % (Auto) 25.1 (23-45) % [place] % (Auto) 10.3 H (0-9.0) % Eos % (Auto) 2.3 (0-4) % Baso % (Auto) 0.3 (0-2) % Neut # 4.6 (1.8-7.7) T/MM3 Lymph # 1.9 (1-4.8) T/MM3 [place] # 0.8 (0-0.8) T/MM3 Eos # 0.2 (0-0.5) T/MM3 Baso # 0.0 (0-0.2) T/MM3 Abs Immat Gran (auto) 0.02 (0.00-0.03) T/MM3 INR (0.99-1.21) APTT (24-36) SEC Turbidity < 20 (0-20) Sodium 145 H (134-144) MEQ/L Potassium 4.5 (3.6-5) MEQ/L Chloride 106 (98-107) MEQ/L Carbon Dioxide 27 (22-30) MEQ/L Anion Gap 12 (5-15) MEQ/L BUN 28.0 H (9-20) MG/DL Creatinine 1.5 (0.8-1.5) MG/DL GFR Calculation 45 BUN/Creatinine Ratio 19 (6-26) RATIO Glucose 97 (75-110) MG/DL Calculated Osmolality 285 H (261-280) MOSM/KG Calcium 9.6 (8.4-10.2) MG/DL Total Bilirubin 0.70 (0.20-1.30) MG/DL Icterus Index < 2 (0-7) AST 22 (17-59) U/L ALT 28 (21-72) U/L Alkaline Phosphatase 112 (38-126) U/L Troponin I < 0.012 (0-0.12) ng/ml Total Protein 8.0 (6.3-8.2) G/DL Albumin 4.3 (3.5-5.0) G/DL Globulin 3.7 H (2.4-3.6) G/DL Albumin/Globulin Ratio 1.2 (1.1-2.2) RATIO Specimen Hemolysis < 15 (0-25) Ur Collection Type Urine, catheter Urine Color Yellow (YELLOW) Urine Clarity Clear Urine pH 6.0 (5.0-8.0) Ur Specific [place] 1.015 (1.015-1.025) Urine Protein Negative (NEGATIVE) Urine Glucose (UA) Negative (NEGATIVE) Urine Ketones Negative (NEGATIVE) Urine Occult Blood Trace-lysed (NEGATIVE) Urine Nitrate Negative (NEGATIVE) Urine Bilirubin Negative (NEGATIVE) Urine Urobilinogen 0.2 (NORMAL) EU/DL Ur Leukocyte Esterase Trace A (NEGATIVE) Urinalysis Comment Microscopic not ind. 08/19/17 Range/Units 13:26 WBC (4.5-11.0) T/MM3 RBC (4.50-5.90) M/MM3 Hgb (13.5-17.5) GM/DL Hct (41-53) % MCV (80-100) UM3 MCH (26-34) UUG MCHC (31-37) GM/DL RDW Std Deviation (36.9-50.2) FL Plt Count (130-400) T/MM3 MPV (9.4-12.4) UM3 Immature Gran % (Auto) (0.0-0.5) % Neut % (Auto) (33-66) % Lymph % (Auto) (23-45) % [place] % (Auto) (0-9.0) % Eos % (Auto) (0-4) % Baso % (Auto) (0-2) % Neut # (1.8-7.7) T/MM3 Lymph # (1-4.8) T/MM3 [place] # (0-0.8) T/MM3 Eos # (0-0.5) T/MM3 Baso # (0-0.2) T/MM3 Abs Immat Gran (auto) (0.00-0.03) T/MM3 INR 1.16 (0.99-1.21) APTT 34.1 (24-36) SEC Turbidity (0-20) Sodium (134-144) MEQ/L Potassium (3.6-5) MEQ/L Chloride (98-107) MEQ/L Carbon Dioxide (22-30) MEQ/L Anion Gap (5-15) MEQ/L BUN (9-20) MG/DL Creatinine (0.8-1.5) MG/DL GFR Calculation BUN/Creatinine Ratio (6-26) RATIO Glucose (75-110) MG/DL Calculated Osmolality (261-280) MOSM/KG Calcium (8.4-10.2) MG/DL Total Bilirubin (0.20-1.30) MG/DL Icterus Index (0-7) AST (17-59) U/L ALT (21-72) U/L Alkaline Phosphatase (38-126) U/L Troponin I (0-0.12) ng/ml Total Protein (6.3-8.2) G/DL Albumin (3.5-5.0) G/DL Globulin (2.4-3.6) G/DL Albumin/Globulin Ratio (1.1-2.2) RATIO Specimen Hemolysis (0-25) Ur Collection Type Urine Color (YELLOW) Urine Clarity Urine pH (5.0-8.0) Ur Specific [place] (1.015-1.025) Urine Protein (NEGATIVE) Urine Glucose (UA) (NEGATIVE) Urine Ketones (NEGATIVE) Urine Occult Blood (NEGATIVE) Urine Nitrate (NEGATIVE) Urine Bilirubin (NEGATIVE) Urine Urobilinogen (NORMAL) EU/DL Ur Leukocyte Esterase (NEGATIVE) Urinalysis Comment <Ben Pisano C - 08/19/17 16:56> Lab Results 08/19/17 08/19/17 08/19/17 Range/Units 13:24 13:26 13:26 WBC 7.5 (4.5-11.0) T/MM3 RBC 4.47 L (4.50-5.90) M/MM3 Hgb 13.0 L (13.5-17.5) GM/DL Hct 40.3 L (41-53) % MCV 90.2 (80-100) UM3 MCH 29.1 (26-34) UUG MCHC 32.3 (31-37) GM/DL RDW Std Deviation 42.3 (36.9-50.2) FL Plt Count 177 (130-400) T/MM3 MPV 10.5 (9.4-12.4) UM3 Immature Gran % (Auto) 0.3 (0.0-0.5) % Neut % (Auto) 61.7 (33-66) % Lymph % (Auto) 25.1 (23-45) % [place] % (Auto) 10.3 H (0-9.0) % Eos % (Auto) 2.3 (0-4) % Baso % (Auto) 0.3 (0-2) % Neut # 4.6 (1.8-7.7) T/MM3 Lymph # 1.9 (1-4.8) T/MM3 [place] # 0.8 (0-0.8) T/MM3 Eos # 0.2 (0-0.5) T/MM3 Baso # 0.0 (0-0.2) T/MM3 Abs Immat Gran (auto) 0.02 (0.00-0.03) T/MM3 INR (0.99-1.21) APTT (24-36) SEC Turbidity < 20 (0-20) Sodium 145 H (134-144) MEQ/L Potassium 4.5 (3.6-5) MEQ/L Chloride 106 (98-107) MEQ/L Carbon Dioxide 27 (22-30) MEQ/L Anion Gap 12 (5-15) MEQ/L BUN 28.0 H (9-20) MG/DL Creatinine 1.5 (0.8-1.5) MG/DL GFR Calculation 45 BUN/Creatinine Ratio 19 (6-26) RATIO Glucose 97 (75-110) MG/DL Calculated Osmolality 285 H (261-280) MOSM/KG Calcium 9.6 (8.4-10.2) MG/DL Total Bilirubin 0.70 (0.20-1.30) MG/DL Icterus Index < 2 (0-7) AST 22 (17-59) U/L ALT 28 (21-72) U/L Alkaline Phosphatase 112 (38-126) U/L Troponin I < 0.012 (0-0.12) ng/ml Total Protein 8.0 (6.3-8.2) G/DL Albumin 4.3 (3.5-5.0) G/DL Globulin 3.7 H (2.4-3.6) G/DL Albumin/Globulin Ratio 1.2 (1.1-2.2) RATIO Specimen Hemolysis < 15 (0-25) Ur Collection Type Urine, catheter Urine Color Yellow (YELLOW) Urine Clarity Clear Urine pH 6.0 (5.0-8.0) Ur Specific [place] 1.015 (1.015-1.025) Urine Protein Negative (NEGATIVE) Urine Glucose (UA) Negative (NEGATIVE) Urine Ketones Negative (NEGATIVE) Urine Occult Blood Trace-lysed (NEGATIVE) Urine Nitrate Negative (NEGATIVE) Urine Bilirubin Negative (NEGATIVE) Urine Urobilinogen 0.2 (NORMAL) EU/DL Ur Leukocyte Esterase Trace A (NEGATIVE) Urinalysis Comment Microscopic not ind. 08/19/17 Range/Units 13:26 WBC (4.5-11.0) T/MM3 RBC (4.50-5.90) M/MM3 Hgb (13.5-17.5) GM/DL Hct (41-53) % MCV (80-100) UM3 MCH (26-34) UUG MCHC (31-37) GM/DL RDW Std Deviation (36.9-50.2) FL Plt Count (130-400) T/MM3 MPV (9.4-12.4) UM3 Immature Gran % (Auto) (0.0-0.5) % Neut % (Auto) (33-66) % Lymph % (Auto) (23-45) % [place] % (Auto) (0-9.0) % Eos % (Auto) (0-4) % Baso % (Auto) (0-2) % Neut # (1.8-7.7) T/MM3 Lymph # (1-4.8) T/MM3 [place] # (0-0.8) T/MM3 Eos # (0-0.5) T/MM3 Baso # (0-0.2) T/MM3 Abs Immat Gran (auto) (0.00-0.03) T/MM3 INR 1.16 (0.99-1.21) APTT 34.1 (24-36) SEC Turbidity (0-20) Sodium (134-144) MEQ/L Potassium (3.6-5) MEQ/L Chloride (98-107) MEQ/L Carbon Dioxide (22-30) MEQ/L Anion Gap (5-15) MEQ/L BUN (9-20) MG/DL Creatinine (0.8-1.5) MG/DL GFR Calculation BUN/Creatinine Ratio (6-26) RATIO Glucose (75-110) MG/DL Calculated Osmolality (261-280) MOSM/KG Calcium (8.4-10.2) MG/DL Total Bilirubin (0.20-1.30) MG/DL Icterus Index (0-7) AST (17-59) U/L ALT (21-72) U/L Alkaline Phosphatase (38-126) U/L Troponin I (0-0.12) ng/ml Total Protein (6.3-8.2) G/DL Albumin (3.5-5.0) G/DL Globulin (2.4-3.6) G/DL Albumin/Globulin Ratio (1.1-2.2) RATIO Specimen Hemolysis (0-25) Ur Collection Type Urine Color (YELLOW) Urine Clarity Urine pH (5.0-8.0) Ur Specific [place] (1.015-1.025) Urine Protein (NEGATIVE) Urine Glucose (UA) (NEGATIVE) Urine Ketones (NEGATIVE) Urine Occult Blood (NEGATIVE) Urine Nitrate (NEGATIVE) Urine Bilirubin (NEGATIVE) Urine Urobilinogen (NORMAL) EU/DL Ur Leukocyte Esterase (NEGATIVE) Urinalysis Comment <Chelsea Smith 08/19/17 14:40> - Radiology Data per Dr Jaeger <Chelsea Smith 08/19/17 15:24> Disposition Clinical Impression: Diffuse cerebral edema, Weakness of both arms <Ben Psiano 08/19/17 16:56> Disposition: 02 To [facility] Acute Care <Ben Pisano 08/19/17 16:56> Condition: Stable <Ben Pisano 08/19/17 16:56> Instructions: <Ben Pisano 08/19/17 16:56> Prescriptions: No Action Aspirin 325 mg PO DAILY #0 tab Atorvastatin Calcium 10 mg PO HS #0 Metoprolol Tartrate 50 mg PO BIDWM #0 Potassium Chloride 20 meq PO WB #0 Budesonide/Formoterol 80/4.5 [Symbicort Inhaler] 2 puff INH BID PRN #0 gm PRN Reason: PRN ORDERS Bumetanide 0.5 mg PO BID #0 Finasteride [Proscar] 5 mg PO DAILY <Ben Pisano 08/19/17 16:56> Referrals: OTHER, [Family Provider] - <Ben Pisano 08/19/17 16:56> Forms: <Ben Pisano 08/19/17 16:56> Time of Disposition: 15:24 <Chelsea Smith 08/19/17 15:24> - Seen By: midlevel <Chelsea Smith 08/19/17 15:24>
--- OUTSIDE RECORDS SUMMARY | 2017-08-19 13:24 | External Medical Summary | Referral Summary ---
:1935 Author Organization [facility] Address [address] [place] [address] Encounter [facility] [id number] Date(s): 06/25/15 - 07/08/15 [facility] [address] [place] [address] Final: ACUTE MYOCARDIAL INFARCTION, OF OTHER ANTERIOR WALL, INITIAL EPISODE OF CARE Final: URINARY TRACT INFECTION, SITE NOT SPECIFIED Final: ACUTE POSTHEMORRHAGIC ANEMIA Final: Other respiratory complications Final: Other specified forms of effusion, except tuberculous Final: OTHER EMPHYSEMA Final: CORONARY ATHEROSCLEROSIS OF [place] CORONARY ARTERY Final: RETENTION OF URINE, UNSPECIFIED [...] Donovan MD Vital Signs Most recent to oldest [Reference Range]: 1 Temperature Axillary [35.2-36.7 degC] 37.4 degC *HI* (07/06/15 8:00 PM) Temperature Oral [35.8-37.3 degC] 36.6 degC (07/08/15 12:43 PM) Temperature Tympanic [36.6-38.1 degC] 37.4 degC (07/05/15 1:14 AM) Temperature Skin [36-37 degC] 37.3 degC *HI* (07/04/15 4:00 AM) Temperature Temporal Artery [36.3-37.8 degC] 37.4 degC (07/05/15 8:00 AM) Peripheral Pulse Rate [60-100 bpm] 102 bpm *HI* (07/08/15 12:43 PM) Peripheral Pulse Rate with Activity 106 bpm (07/07/15 2:09 PM) Heart Rate Monitored [60-100 bpm] 99 bpm (07/07/15 10:37 AM) Respiratory Rate [14-20 br/min] 20 br/min (07/08/15 12:43 PM) Blood Pressure [90-140/60-90 mmHg] 98/63 mmHg (07/08/15 12:43 PM) Systolic Blood Pressure with Activity 121 mmHg (07/07/15 2:09 PM) Diastolic Blood Pressure with Activity 72 mmHg (07/07/15 2:09 PM) Mean Arterial Pressure, Cuff 90 mmHg (07/05/15 9:00 AM) Blood Pressure Invasive [90-140/60-90 mmHg] 107/40 mmHg (07/04/15 12:00 PM) Mean Arterial Pressure, Invasive 171 mmHg (07/04/15 2:00 PM) Pulse Rate [60-100 bpm] 92 bpm (07/08/15 10:04 AM) SpO2 95 % (07/08/15 12:43 PM) Problem List Condition Effective Dates Status Health Status Informant Acute pain(Confirmed) Active At risk of pressure sore(Confirmed) Active Cardiac disorder(Confirmed)1 Active Knowledge deficit(Confirmed)2 Active Tissue perfusion Active alteration(Confirmed)3 1Problem added automatically by system based on initiation of Cardiac Output/ Ineffective Cardiac Perfusion Plan of [id number] added automatically by system based on initiation of Knowledge Deficit Plan of [id number] added automatically by system based on initiation of Tissue Perfusion Cerebral Plan of Care Allergies, Adverse Reactions, Alerts No Known Allergies Medications acetaminophen 325 mg oral tablet 650 mg 2 tabs, Oral, q4hr, Fever, 0 Refill(s) Start Date: 07/08/15 Status: Orderedaspirin 81 mg oral delayed release tablet 81 mg 1 tabs, Oral, Daily, 0 Refill(s) Start Date: 07/08/15 Status: OrderedChloraseptic Menthol 1.4% topical spray 1 sprays, Topical, q1hr, Sore Throat, 0 Refill(s) Start Date: 07/08/15 Status: OrderedColace 100 mg oral capsule 200 mg 2 caps, Oral, Daily, 0 Refill(s) Start Date: 07/08/15 Status: OrderedFlomax 0.4 mg oral capsule 0.4 mg 1 caps, Oral, Daily, # 30 caps, 0 Refill(s), other reason (Rx) Start Date: 07/08/15 Status: Orderedlansoprazole 15 mg, Oral, Once, 0 Refill(s) Start Date: 06/25/15 Status: OrderedLasix 20 mg oral tablet 20 mg 1 tabs, Oral, Daily, # 30 tabs, 0 Refill(s), other reason (Rx) Start Date: 07/08/15 Status: OrderedLipitor 40 mg oral tablet 40 mg 1 tabs, Oral, Daily, # 30 tabs, 0 Refill(s), other reason (Rx) Start Date: 07/08/15 Status: OrderedLopressor 50 mg oral tablet 25 mg 0.5 tabs, Oral, TID, # 45 tabs, 0 Refill(s), other reason (Rx) Start Date: 07/08/15 Status: OrderedNorco 5 mg-325 mg oral tablet 1 tabs, Oral, q6hr, as needed for pain, 0 Refill(s) Start Date: 06/25/15 Status: Orderedocular lubricant Eye-Both, q4hr, Dry Eyes, 0 Refill(s) Start Date: 07/08/15 Status: Orderedpotassium chloride 20 mEq oral tablet, extended release 20 mEq 1 tabs, Oral, BID, # 60 tabs, 0 Refill(s), other reason (Rx) Start Date: 07/08/15 Status: OrderedSymbicort 160 mcg-4.5 mcg/inh inhalation aerosol 2 puffs, Inhalation, BID, 0 Refill(s) Start Date: 06/25/15 Status: Ordered Results Blood Gases Most recent to oldest [Reference Range]: 1 pH [7.35-7.45] 7.41 (07/04/15 4:28 AM) PCO2 Arterial POC [35-45 mmHg] 45 mmHg (07/03/15 2:43 PM) pCO2 Art [35-45 mmHg] 30 mmHg *LOW* (07/04/15 4:28 AM) CO2 Totl Art [23-27 mEq/L] 26 mEq/L (07/03/15 2:43 PM) Bicarbonate [22-26 mEq/L] 19 mEq/L *LOW* (07/04/15 4:28 AM) Bicarbonate Arterial POC [22-26 mEq/L] 25 mEq/L (07/03/15 2:43 PM) Base Excess Arterial POC [0-2] -1 *LOW* (07/03/15 2:43 PM) Base Excess Art [0-2] -5 *LOW* (07/04/15 4:28 AM) O2 Sat Art [90.0-97.0 %] 93.1 % (07/04/15 4:28 AM) pO2 Art [80-100 mmHg] 68 mmHg *LOW* (07/04/15 4:28 AM) O2 Saturation Arterial POC [90.0-97.0 %] 100.0 % *HI* (07/03/15 2:43 PM) pH Arterial POC [7.35-7.45] 7.35 (07/03/15 2:43 PM) PO2 Arterial POC [80-100 mmHg] 292 mmHg *HI* (07/03/15 2:43 PM) LPM Art 2.0 [...] A-Line (07/04/15 4:28 AM) pH Venous POC [7.32-7.42] 7.27 *LOW* (07/03/15 2:14 PM) PCO2 Venous POC [41-51 mmHg] 41 mmHg (07/03/15 2:14 PM) PO2 Venous POC [80-100 mmHg] 50 mmHg *LOW* (07/03/15 2:14 PM) Total CO2 Venous POC [25-29 mEq/L] 20 mEq/L *LOW* (07/03/15 2:14 PM) Bicarbonate Venous POC [24-28 mEq/L] 19 mEq/L *LOW* (07/03/15 2:14 PM) Base Excess Venous POC [0-4] -8 *LOW* (07/03/15 2:14 PM) O2 Saturation Venous POC [90.0-97.0 %] 79.0 % *LOW* (07/03/15 2:14 PM) Hematology Most recent to oldest [Reference Range]: 1 WBC [4.8-10.8 10*3/uL] 10.8 10*3/uL (07/07/15 5:43 AM) RBC [4.60-6.20 10*6/uL] 3.05 10*6/uL *LOW* (07/07/15 5:43 AM) Hgb [14.0-18.0 gm/dL] 8.9 gm/dL *LOW* (07/07/15 5:43 AM) Hct [42.0-52.0 %] 26.8 % *LOW* (07/07/15 5:43 AM) MCV [82.0-99.0 fL] 87.9 fL (07/07/15 5:43 AM) MCH [27.0-32.0 pg] 29.2 pg (07/07/15 5:43 AM) MCHC [32.0-36.0 gm/dL] 33.2 gm/dL (07/07/15 5:43 AM) RDW [11.5-14.5 %] 14.4 % (07/07/15 5:43 AM) Platelet [150-400 10*3/uL] 281 10*3/uL (07/07/15 5:43 AM) MPV [9.4-12.3 fL] 10.5 fL (07/07/15 5:43 AM) Immature Granulocytes [0.0-1.0 %] 0.7 % (07/04/15 3:38 AM) Neutrophils [51-75 %] 80 % *HI* (07/04/15 3:38 AM) Lymphocytes [20-46 %] 8 % *LOW* (07/04/15 3:38 AM) Monocytes [4-11 %] 11 % (07/04/15 3:38 AM) Eosinophils [0-4 %] 0 % (07/04/15 3:38 AM) Basophils [0-2 %] 0 % (07/04/15 3:38 AM) Neutro Absolute [1.90-7.00 10*3] 8.49 10*3 *HI* (07/04/15 3:38 AM) Lymph Absolute [0.80-3.30 10*3] 0.88 10*3 (07/04/15 3:38 AM) Humphreys Absolute [0.30-1.00 10*3] 1.17 10*3 *HI* (07/04/15 3:38 AM) Eos Absolute [0.00-0.50 10*3] 0.02 10*3 (07/04/15 3:38 AM) Baso Absolute [0.00-0.20 10*3] 0.03 10*3 (07/04/15 3:38 AM) Nucleated RBC Automated [0 /100 WBC] 0.0 /100 WBC (07/04/15 3:38 AM) Coagulation Most recent to oldest [Reference Range]: 1 INR [0.9-1.2] 1.3 *HI* (07/06/15 7:14 PM) PTT [25.0-35.0] 29.5 (07/06/15 7:14 PM) Fibrinogen Lvl [187-520 mg/dL] 270 mg/dL (07/03/15 2:12 PM) Chemistry Most recent to oldest [Reference Range]: 1 Sodium Lvl [136-144 mEq/L] 138 mEq/L (07/07/15 5:43 AM) Potassium Lvl [3.6-5.1 mEq/L] 4.4 mEq/L (07/07/15 5:43 AM) Chloride [99-109 mEq/L] 107 mEq/L (07/07/15 5:43 AM) CO2 [22-32 mEq/L] 23 mEq/L (07/07/15 5:43 AM) AGAP [3-20] 8 (07/07/15 5:43 AM) BUN [4-20 mg/dL] 30 mg/dL *HI* (07/07/15 5:43 AM) Glucose Lvl [70-100 mg/dL] 101 mg/dL *HI* (07/07/15 5:43 AM) Creatinine Lvl [0.64-1.27 mg/dL] 1.24 mg/dL (07/07/15 5:43 AM) eGFR [>60] 56 1 *ABN* (07/07/15 5:43 AM) Calcium Lvl [8.6-10.0 mg/dL] 8.4 mg/dL *LOW* (07/07/15 5:43 AM) Albumin Lvl [3.5-4.8 gm/dL] 3.5 gm/dL (06/25/15 1:29 PM) Total Protein [6.1-7.9 gm/dL] 6.4 gm/dL (06/25/15 1:29 PM) Globulin [1.9-4.3 gm/dL] 2.9 gm/dL (06/25/15 1:29 PM) ALT [17-63 U/L] 31 U/L (06/25/15 1:29 PM) AST [15-41 U/L] 135 U/L *HI* (06/25/15 1:29 PM) Alk Phos [26-104 U/L] 72 U/L (06/25/15 1:29 PM) Bili Total [0.2-1.2 mg/dL] 0.7 mg/dL 2 (06/25/15 1:29 PM) Magnesium Lvl [1.8-2.5 mg/dL] 2.1 mg/dL (07/05/15 3:52 AM) Calcium Ionized [1.19-1.41 mmol/L] 1.25 mmol/L (07/05/15 3:52 AM) Troponin [<0.06 ng/mL] 2.05 ng/mL 3 *HHI* (07/02/15 5:53 AM) Prealbumin [18-38 mg/dL] 11 mg/dL *LOW* (07/02/15 5:53 AM) Sodium Arterial NPT [136-144 mEq/L] 140 mEq/L (07/03/15 2:43 PM) Potassium Arterial NPT [3.6-5.1 mEq/L] 4.6 mEq/L 4 (07/03/15 2:43 PM) Calcium Ionized Arterial NPT [1.19-1.41 mmol/L] 1.23 mmol/L (07/03/15 2:43 PM) HCT Arterial NPT 26.0 % (07/03/15 2:43 PM) HGB Arterial NPT 8.8 gm/dL (07/03/15 2:43 PM) Arterial Glucose NPT [70-100 mg/dL] 89 mg/dL (07/03/15 2:43 PM) Sodium Venous NPT [136-144 mEq/L] 143 mEq/L (07/03/15 2:14 PM) Potassium Venous NPT [3.6-5.1 mEq/L] 4.2 mEq/L 5 (07/03/15 2:14 PM) Calcium Ionized Venous NPT [1.19-1.41 mmol/L] 1.26 mmol/L (07/03/15 2:14 PM) Glucose Venous NPT [70-100 mg/dL] 84 mg/dL (07/03/15 2:14 PM) HCT Venous NPT 22.0 % (07/03/15 2:14 PM) HGB Kenneth NPT 7.5 gm/dL (07/03/15 2:14 PM) Activated Clotting Time NPT [100-146] 118 (07/03/15 2:13 PM) Blood Glucose, Capillary [74-106 mg/dL] 117 mg/dL *HI* (07/05/15 6:00 AM) Chol [0-200 mg/dL] 134 mg/dL (06/26/15 4:00 AM) Trig [0-150 mg/dL] 93 mg/dL (06/26/15 4:00 AM) HDL [>40 mg/dL] 37 mg/dL *ABN* (06/26/15 4:00 AM) LDL [0-100 mg/dL] 78 mg/dL (06/26/15 4:00 AM) VLDL Cholesterol [0-30 mg/dL] 19 mg/dL (06/26/15 4:00 AM) Cardiac Risk [0.0-5.7] 3.6 (06/26/15 4:00 AM) Hgb A1c [4.1-5.6 %] 5.7 % *HI* (07/02/15 5:53 AM) eAvg Glucose 116.9 mg/dL (07/02/15 5:53 AM) 1Result Comment: Multiply eGFR results by 1.21 for race.2Result Comment: Naproxen, specifically the metabolite O-desmethylnaproxen, may cause spurious elevation in Total Bilirubin levels.3Result Comment: Critical value called, and read-back verified. Called to Shea Baltazar RN ([facility]) 07/02/2015 10:504Result Comment: This test was performed on a whole blood specimen. The presence or absence of hemolysis cannot be assessed. Hemolysis can falsely elevate potassium levels. Normals are for venous specimens only.5Result Comment: This test was performed on a whole blood specimen. The presence or absence of hemolysis cannot be assessed. Hemolysis can falsely elevate potassium levels. Normals are for venous specimens only.Urinalysis Most recent to oldest [Reference Range]: 1 UA Color Dk Yellow (07/01/15 2:43 PM) UA Appear Clear (07/01/15 2:43 PM) UA pH [5.0-8.0] 5.0 (07/01/15 2:43 PM) UA Leuk Est [Negative] Trace *ABN* (07/01/15 2:43 PM) UA Nitrite [Negative] Negative (07/01/15 2:43 PM) UA Protein [Negative] Pos 1+ *ABN* (07/01/15 2:43 PM) UA Glucose [Negative] Negative (07/01/15 2:43 PM) UA Ketones [Negative] Trace *ABN* (07/01/15 2:43 PM) UA Urobilinogen [<1.0 mg/dL] 1.0 mg/dL (07/01/15 2:43 PM) UA Bili [Negative] Negative (07/01/15 2:43 PM) UA Blood [Negative] Pos 3+ *ABN* (07/01/15 2:43 PM) UA Spec Grav [1.003-1.030] 1.025 (07/01/15 2:43 PM) Type Melgoza (07/01/15 2:43 PM) UA WBC [0-4] 2-5 (07/01/15 2:43 PM) UA RBC [0-2] 20-50 *ABN* (07/01/15 2:43 PM) Epithelial Cells 0-2 (07/01/15 2:43 PM) UA Bacteria Rare (07/01/15 2:43 PM) UA Mucous Present (07/01/15 2:43 PM) Blood Bank Results Most recent to oldest [Reference Range]: 1 ABO/Rh A POS (07/02/15 5:53 AM) Antibody Screen Tube NEG (07/02/15 5:53 AM) Microbiology Reports TEST:MRSA Screen Culture STATUS:Auth (Verified) BODY SITE: SOURCE:[facility] COLLECTED DATE/TIME:07/01/15 8:58 PMMRSA Screen CultureNo Methicillin Resistant Staphylococcus aureus isolated. Immunizations No data available for this section Procedures Procedure Date Related Diagnosis Body Site Thoracentesis, needle or catheter, aspiration of 07/07/15 the pleural space; with imaging guidance Bypass Graft Coronary Artery1 07/03/15 [place] [facility] Endoscopic (Right, Lower Extremity)2 07/03/15 Hernia Rotator cuff tear3 1auto-populated from documented surgical [id number] from documented surgical [id number] cuff surgery to lanie taylor Social History Social History Type Response Smoking Status Former smoker; Type: Cigarettes; Tobacco use per day: More than 1 pack; Number of years: 40 Assessment and Plan No data available for this section
--- NOTE | 2017-08-19 13:55 | CT Scan Report ---
Indication: weakness PROCEDURE: CT head/brain wo con: Encounter: Initial Comparison: None Technique: Axial CT images through the head were performed without contrast. Iterative Reconstruction dose reducing technique was utilized. FINDINGS: There is vasogenic edema in the right posterior frontal and parietal lobes best seen on images 25 through 32. No acute intracranial hemorrhage. Slight effacement of the posterior horn of the right lateral ventricle without evidence of acute midline shift. Mild generalized atrophy. No calvarial fracture. The paranasal sinuses are clear as are the mastoid air cells. Impression: Vasogenic edema in the right frontal and lobes raising suspicion for an underlying neoplastic or metastatic process. Cerebral abscess or acute infection would also be within the differential. Recommend contrast enhanced brain MRI for further evaluation. Findings were discussed with the ordering clinician at 1350 on August 19, 2017. .
--- NOTE | 2017-08-19 13:57 | XRay Report ---
INDICATION: weakness cardiac history PROCEDURE: CHEST 2-VIEWS UPRIGHT (PA & LAT) Encounter: Initial COMPARISON: December 06, 2015 FINDINGS: Prior CABG with left pacemaker defibrillator. Chronic mild hyperinflation. Right basilar scarring. No focal pneumonia, pleural effusion or pneumothorax. Heart size and mediastinal contours are stable. Pulmonary vascularity is unchanged with prominent central pulmonary arteries possibly due to pulmonary artery hypertension. Impression: Stable chest without acute cardiopulmonary disease. .
[2017-08-19 17:30] VITALS: RESP 18
[2017-08-19 17:37] VITALS: BMI 22.1
[2017-08-19] MEDS ORDERED: BUDESONIDE ORAL INH PRN (18:45)
[2017-08-19] MEDS ORDERED: FORMOTEROL ORAL INH PRN (18:45)
--- NOTE | 2017-08-19 18:45 | History & Physical Report ---
<Mariangel Carbajal - Last Filed: 08/19/17 19:52> History of Present Illness Date: 08/19/17 Chief complaint: arm weakness and pain HPI: Patient is an 82-year-old male who presents to the emergency room at the insistence of his "lady friend." She reports she was notified today by his boss that he had not shown up for work. 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 When he didn't show up for work, his boss notified his girlfriend. She went to check on him and he complained of bilateral shoulder and arm weakness and neck pain. She reports that he is "not a complainer." He states he is not sure if it was weakness or pain, but that he was unable to reach up to turn on the turn signal in his car. He states he's had worsening symptoms over the past 2 weeks. Describes it as a "burning" or "shocking" sensation in his upper arms and shoulders. States he thinks symptoms are worse when he moves. He has had a history of bilateral rotator cuff repairs and has degenerative changes to the shoulders bilaterally. He states he takes aspirin every day and sometimes twice a day for his pain. Recently he has had more numbness in the arms. He's not had any chest pain or shortness of breath. In the emergency room his workup included a chest x-ray showing chronic mild hyperinflation with no acute changes. CT head showed "vasogenic edema in the right frontal lobe raising suspicion for an underlying neoplastic or metastatic process. Cerebral abscess or acute infection also be within the differential." MRI brain with contrast is recommended, however, patient cannot undergo this evaluation due to his BiV-ICD. His labs showed mild normocytic anemia with hemoglobin of 13. Sodium was slightly elevated at 145. Troponin was negative and UA was negative. 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 Donovan) COPD (previous smoker and asbestos lung damage) BPH-not a surgical candidate for TURP (self catheterizes) Surgical History: Umbilical hernia. CABG-2015. Bilateral rotator cuff repair. BiV-ICD 12/2015 (Dr. 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 Naomie Benites/Dr. Donovan [place] urologist-Dr. Hackett (also sees Dr. Mello) Medications Home Medications Medication Instructions Recorded Confirmed Type Aspirin 325 mg PO DAILY #0 tab 11/30/15 08/19/17 History Budesonide/Formoterol 80/4.5 2 puff INH BID PRN #0 gm 12/05/15 08/19/17 History [Symbicort Inhaler] Atorvastatin Calcium 10 mg PO HS #0 04/21/17 08/19/17 History Bumetanide 0.5 mg PO DAILY #0 04/21/17 08/19/17 History Metoprolol Tartrate 50 mg PO BIDWM #0 04/21/17 08/19/17 History Potassium Chloride 10 meq PO WB #0 04/21/17 08/19/17 History Finasteride [Proscar] 5 mg PO DAILY 08/19/17 08/19/17 History Phenylephrine HCl [Nasal 10 mg PO Q6H PRN 08/19/17 08/19/17 History Decongestant PE] Tamsulosin [Flomax] 0.4 mg PO HS 08/19/17 08/19/17 History Allergies Allergy/AdvReac Type Severity Reaction Status Date / Time No Known Allergies Allergy Unverified 08/19/17 12:51 Exam Vital Signs: Temperature 96.5 F L 08/19/17 16:37 Pulse Rate 66 08/19/17 16:37 Respiratory Rate 18 08/19/17 16:37 Blood Pressure 123/61 08/19/17 16:37 Pulse Oximetry 98 08/19/17 16:37 Height/Weight/BMI: Height 1.78 m Weight 69.8 kg Body Mass Index 22.1 - Constitutional Present: no acute distress, well nourished, well developed - Routine HEENT Exam Head: Present: normocephalic, atraumatic Eye: Present: EOMI, PERRL ENT: Present: mucous membranes moist. Absent: dentition normal (upper dentures) - Routine Neck Exam Present: supple, tenderness (posterior - muscle tightness noted) - Routine Respiratory Exam Present: CTA bilaterally. Absent: wheezes - Routine Cardiovascular Exam Present: RRR (irregular at times). Absent: murmur - Routine Abdominal Exam Present: soft, normoactive bowel sounds, non distended. Absent: tenderness - Routine Extremities Exam Present: no edema, non tender (no pain with palpation of the shoulders or arms. Appropriate strength for patient's age), normal capillary refill - Routine Skin Exam Present: dry, warm - Routine Neurological Exam Present: alert, oriented X3, moving all extremities, normal speech. Absent: sensory deficit, pronator drift, altered mental status, facial asymmetry Cranial nerves III through XII intact - Routine Psychiatric Exam Present: normal affect, normal thought process, cooperative Results - Labs CBC & Chem 7: 08/19/17 13:26 08/19/17 13:26 - Imaging and Cardiology CT scan - head Additional comments: Date of Exam: 08/19/17 Ordering Provider: Chelsea Smith APRN Type of Exam(s): CT head/brain wo con Reason for Exam(s): weakness Indication: weakness PROCEDURE: CT head/brain wo con: Encounter: Initial Comparison: None Technique: Axial CT images through the head were performed without contrast. Iterative Reconstruction dose reducing technique was utilized. FINDINGS: There is vasogenic edema in the right posterior frontal and parietal lobes best seen on images 25 through 32. No acute intracranial hemorrhage. Slight effacement of the posterior horn of the right lateral ventricle without evidence of acute midline shift. Mild generalized atrophy. No calvarial fracture. The paranasal sinuses are clear as are the mastoid air cells. Impression: Vasogenic edema in the right frontal and lobes raising suspicion for an underlying neoplastic or metastatic process. Cerebral abscess or acute infection would also be within the differential. Recommend contrast enhanced brain MRI for further evaluation. Findings were discussed with the ordering clinician at 1350 on August 19, 2017. . Chest x-ray Additional comments: Date of Exam: 08/19/17 Ordering Provider: Chelsea Smith APRN Type of Exam(s): XR chest 2V Reason for Exam(s): weakness cardiac history INDICATION: weakness cardiac history PROCEDURE: CHEST 2-VIEWS UPRIGHT (PA & LAT) Encounter: Initial COMPARISON: December 06, 2015 FINDINGS: Prior CABG with left pacemaker defibrillator. Chronic mild hyperinflation. Right basilar scarring. No focal pneumonia, pleural effusion or pneumothorax. Heart size and mediastinal contours are stable. Pulmonary vascularity is unchanged with prominent central pulmonary arteries possibly due to pulmonary artery hypertension. Impression: Stable chest without acute cardiopulmonary disease. . Assessment and Plan (1) Diffuse cerebral edema Current visit: Yes Status: Acute (2) Weakness of both arms Current visit: Yes Status: Acute DVT Prophylaxis: SCD's Resuscitation Status: Do Not Resuscitate Assessment and Plan: Impression Cerebral edema-rule out neoplastic/metastatic process versus acute infection versus other Bilateral arm weakness/pain - doubt cardiac etiology. Most likely etiology would be musculoskeletal versus neuro Ischemic cardiomyopathy Atherosclerotic heart disease Hyperlipidemia Chronic systolic congestive heart failure Implanted BiV-ICD - 1/16 (Dr. Donovan) COPD (previous smoker and asbestos lung damage) BPH-not a surgical candidate for TURP (self catheterizes) Plan Admit to observation under the hospitalist service, Dr. Carrero attending, for determination of further workup and pain control. CT head with contrast (given MRI cannot be performed) to further workup cerebral edema. Check CT C-spine for neck pain and bilateral shoulder/arm pain. SCDs for DVT prophylaxis. Consider short course of steroids for current pain. Would recommend PPI for GI prophylaxis if starting steroids. Continue current home medications for chronic health problems. Case discussed with Dr. Carrero. Patient's care to be returned to his PCP at the [place], ELDER Manzanares, on dismissal. Sepsis Assessment - Evaluation Sepsis screening result: No Definite Risk Hospital Course Summary Disclaimer: The visit summary below is not to be considered part of the above Progress Note. Hospital Course: Cerebral edema-rule out neoplastic/metastatic process versus acute infection versus other Bilateral arm weakness/pain - doubt cardiac etiology. 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 Carrero attending, for determination of further workup and pain control. CT head with contrast (given MRI cannot be performed) to further workup cerebral edema. Check CT C-spine for neck pain and bilateral shoulder/arm pain. SCDs for DVT prophylaxis. Consider short course of steroids for current pain. Would recommend PPI for GI prophylaxis if starting steroids. Continue current home medications for chronic health problems. Case discussed with Dr. Carrero. Patient's care to be returned to his PCP at the [place], ELD[facility] Manzanares, on dismissal. <Lakesha Carrero - Last Filed: 08/19/17 21:39> History of Present Illness Date: 08/19/17 [facility] Patient Stated Medical History Cataracts Yes Hearing Loss Yes Hypertension Yes Myocardial Infarction Yes Chronic Obstructive Pulmonary Yes Disease (COPD) Other Respiratory Yes: ASBESTOS LUNG DAMAGE Other Yes: SELF CATHETERIZES Exam Vital Signs: Temperature 96.5 F L 08/19/17 16:37 Pulse Rate 66 08/19/17 16:37 Respiratory Rate 18 08/19/17 16:37 Blood Pressure 123/61 08/19/17 16:37 Pulse Oximetry 98 08/19/17 16:37 Height/Weight/BMI: Height 1.78 m Weight 69.8 kg Body Mass Index 22.1 Results - Labs CBC & Chem 7: 08/19/17 13:26 08/19/17 13:26 Assessment and Plan (1) Diffuse cerebral edema Current visit: Yes Status: Acute (2) Weakness of both arms Current visit: Yes Status: Acute Assessment and Plan: 08/19/2017-I reviewed this chart, the patient history, and the ASSEMBLIES AND INSTALLATIONS INSPECTOR's/PA's documented findings as above. We discussed and formulated the assessment and plan as above with the additions below.-Dr. Carrero The patient was seen earlier this evening. He described a progressive 2 week history of some mild neck pain and some progressively worsening bilateral arm pains and some mild weakness. He describes his pain as electrical in nature. He presented to the emergency room and CT head showed pressure will edema and concerns for possible underlying brain mass. He is unable to undergo MRI because of pacemaker/defibrillator. He denies having any headaches or nausea. He denies any fatigue. He denies any fevers, chills or night sweats. He denies any weight loss. He does have emphysema and asbestosis. He has a history of smoking but quit 20 or 30 years ago. He denies any significant cough or hemoptysis. He denies any bloody stools or black tarry stools. He denies any difficulties with constipation. He denies any hematuria. He does require straight catheters because of urinary retention and he is still able to do this despite the pain/weakness in his arms. On exam, the patient is alert and oriented 3 and in no acute distress. Speech is normal. HEENT reveals sclerae to be anicteric and pupils are equal round and reactive. Extraocular movements are intact. Or fax is moist. Neck is supple without lymphadenopathy. Chest is clear to auscultation. Cardiovascular reveals a regular rate and rhythm. Abdomen is soft and nontender. Extremities are free of edema. Cranial nerves II through XII are grossly intact. Arm strength seems normal on exam bilaterally. Lower extremities reveals strength to be 5 over 5 and equal bilaterally. Sensation is normal in the upper extremities. Gait was not assessed. Lab and radiology were reviewed. Impression Cerebral edema with possible brain mass seen on CT. Symptoms of neck pain, bilateral arm pain and weakness are more likely to be originating from an issue in the patient's neck with possible nerve impingement. It's possible that he has to separate issues going on. Plan CT brain with contrast regarding brain mass CT cervical spine with contrast regarding neck pain and radicular type pain in the arms with associated weakness. Decadron was initiated regarding brain edema Will need consultation with oncology if it indeed appears he has a brain mass on CT Await neck CT. May need consultation with neurology depending upon results and symptoms. Hospital Course Summary Disclaimer: The visit summary below is not to be considered part of the above Progress Note.
[2017-08-19] MEDS ORDERED: ACETAMINOPHEN 500 MG TABLET PO PRN (19:59)
[2017-08-19] MEDS ORDERED: NS 100 ML ONE (20:01)
[2017-08-19] MEDS ORDERED: SALINE FLUSH 10ml SYRINGE ONE (20:01)
[2017-08-19] MEDS ORDERED: IOHEXOL 300mg/ml 75ml INJECTION ONE (20:01)
[2017-08-19] MEDS ORDERED: --POM--ATORVASTATIN 20 MG TABLET PO SCH (21:00)
[2017-08-19] MEDS ORDERED: --POM--TAMSULOSIN 0.4 MG CAPSULE PO SCH (21:00)
[2017-08-19] MEDS: DEXAMETHASONE 4 MG TABLET PO SCH (21:48)
[2017-08-20] MEDS: DEXAMETHASONE 4 MG TABLET PO SCH ×2 (03:07→08:55)
[2017-08-20 07:32] VITALS: BP 104/58; PULSE 55; TEMP 95.6; O2SAT 93
[2017-08-20] MEDS ORDERED: --POM--METOPROLOL TARTRATE 100mg TABLET PO SCH (08:00)
[2017-08-20] MEDS ORDERED: --POM--ASPIRIN 325 MG TABLET PO SCH (09:00)
[2017-08-20] MEDS ORDERED: --POM--FINASTERIDE 5 MG TABLET PO SCH (09:00)
[2017-08-20] MEDS ORDERED: --POM--BUMETANIDE 1 MG TABLET PO SCH (09:00)
--- NOTE | 2017-08-20 10:03 | CT Scan Report ---
Indication: abnl CT head, ?mass, edema, cant do MRI PROCEDURE: CT head/brain w con: Encounter: Initial Comparison: Noncontrast head CT from earlier in the same day Technique: Axial CT imaging through the head was performed after administration of intravenous contrast. Findings: The area of vasogenic edema seen on CT represents an irregular ring-enhancing lesion measuring 2.8 x 2.8 cm in diameter on axial image #34. This has internal low attenuation. No additional enhancing masses identified. No acute intracranial hemorrhage. Ventricles are stable. No mass effect or midline shift. Impression: Ring-enhancing right parietal lesion. Differential diagnosis includes subacute infarct, metastatic disease/lymphoma, primary brain neoplasm and abscess. .
--- NOTE | 2017-08-20 10:51 | CT Scan Report ---
Addendum: The exam performed was actually a cervical spine CT with contrast. Addendum to technique: Axial postcontrast CT imaging of the cervical spine was performed with coronal and sagittal two-dimensional reformats. Contrast: Omnipaque 300 74mL Automated Exposure Control and Iterative Reconstruction dose reducing techniques were utilized. Findings: Alignment of the cervical spine is slightly straightened. No acute fractures identified. 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 Moderate to severe disk space narrowing at C5-C6 with mild disk height loss at C6-C7. No obvious central canal stenosis. Multilevel degenerative uncovertebral changes. No enhancing masses identified in the spinal canal. No lytic or blastic osseous lesions appreciated. Segmental analysis: C2-C3: No obvious disk herniation or central canal stenosis. No neural foraminal stenosis. C3-C4: No focal disk herniation or central canal stenosis. No neural foraminal stenosis. C4-C5: Degenerative facet and uncovertebral hypertrophy resulting in mild bilateral neural foraminal stenosis. No focal disk protrusion or central canal stenosis. C5-C6: Disk osteophyte complex slightly effacing the thecal sac without true central canal stenosis. Degenerative facet and uncovertebral degenerative change causing mild bilateral neural foraminal stenosis. C6-C7: No focal disk protrusion or central canal stenosis. Degenerative uncovertebral changes resulting in mild left and moderate right neural foraminal stenosis. C7-T1: Normal Impression: No acute fracture. Mild to moderate degenerative disk and facet disease in the mid to lower cervical spine. . Indication: bilateral arm pain, weakness PROCEDURE: CT neck w con: Encounter: Initial Comparison: None Technique: Axial CT images through the neck were performed with contrast. Coronal and sagittal reformatted images were also obtained. Automated Exposure Control and Iterative Reconstruction dose reducing techniques were utilized. Contrast: 74 mL Omnipaque 300 FINDINGS: Moderate centrilobular emphysema in the lung apices. No adenopathy or mass seen in the neck. No mucosal based mass lesions appreciated. Bony structures show degenerative change in the cervical spine. No fluid collections or hematoma identified. Impression: No mass or adenopathy seen in the neck. Emphysema. There is a preliminary report by virtual radiologic. . [facility]
--- NOTE | 2017-08-20 11:08 | Progress Note ---
<Mariangel Carbajal - Last Filed: 08/20/17 11:04> Subjective: Patient is seen today lying in bed. He reports he feels "great" today. He can lift his arms up today without any pain. He reports he is eating and drinking well. He slept well last night. Denies headache, lightheadedness, or any pain at this time. Objective Vital signs: Temperature 95.6 F L 08/20/17 07:30 Pulse Rate 55 L 08/20/17 07:30 Respiratory Rate 18 08/20/17 07:30 Blood Pressure 104/58 08/20/17 07:30 Pulse Oximetry 93 08/20/17 07:30 Height/Weight/BMI: Height 1.78 m Weight 70.5 kg Body Mass Index 22.1 - Constitutional Present: no acute distress, well nourished, well developed - Routine HEENT Exam Head: Present: normocephalic, atraumatic ENT: Present: mucous membranes moist - Routine Respiratory Exam Present: CTA bilaterally. Absent: wheezes - Routine Cardiovascular Exam Present: RRR. Absent: murmur - Routine Abdominal Exam Present: soft, normoactive bowel sounds, non distended. Absent: tenderness - Routine Extremities Exam Present: no edema, normal capillary refill - Routine Skin Exam Present: dry, warm - Routine Neurological Exam Present: alert - Routine Lymphatic Exam Lymphatic: Absent: adenopathy - Routine Psychiatric Exam Present: normal affect, normal thought process, cooperative Results - Labs CBC & Chem 7: 08/20/17 09:13 08/20/17 09:13 - Imaging and Cardiology CT neck Additional comments: FINDINGS: Moderate centrilobular emphysema in the lung apices. No adenopathy or mass seen in the neck. No mucosal based mass lesions appreciated. Bony structures show degenerative change in the cervical spine. No fluid collections or hematoma identified. Impression: No mass or adenopathy seen in the neck. Emphysema. CT scan - head Additional comments: CT head with contrast Date of Exam: 08/19/17 Ordering Provider: Lakesha Carrero MD Type of Exam(s): CT head/brain w con Reason for Exam(s): abnl CT head, ?mass, edema, cant do MRI Indication: abnl CT head, ?mass, edema, cant do MRI PROCEDURE: CT head/brain w con: Encounter: Initial Comparison: Noncontrast head CT from earlier in the same day Technique: Axial CT imaging through the head was performed after administration of intravenous contrast. Findings: The area of vasogenic edema seen on CT represents an irregular ring-enhancing lesion measuring 2.8 x 2.8 cm in diameter on axial image #34. This has internal low attenuation. No additional enhancing masses identified. No acute intracranial hemorrhage. Ventricles are stable. No mass effect or midline shift. Impression: Ring-enhancing right parietal lesion. Differential diagnosis includes subacute infarct, metastatic disease/lymphoma, primary brain neoplasm and abscess. Assessment and Plan (1) Diffuse cerebral edema Current visit: Yes Status: Acute (2) Weakness of both arms Current visit: Yes Status: Acute Assessment and Plan: Impression Cerebral edema-rule out neoplastic/metastatic process versus acute infection versus other Bilateral arm weakness/pain - doubt cardiac etiology. 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 Will consult Dr. Panchal for his expert opinion. Patient's neck and shoulder pain is significantly improved with steroids. This raises suspicion for diagnosis of PMR. At this point, would not proceed with ESR or CRP given that he has already started on steroids. If the symptoms resume following discontinuation of steroids, further evaluation could be pursued at that point. Sepsis Assessment - Evaluation Sepsis screening result: No Definite Risk Hospital Course Summary Disclaimer: The visit summary below is not to be considered part of the above Progress Note. Hospital Course: Cerebral edema-rule out neoplastic/metastatic process versus acute infection versus other Bilateral arm weakness/pain - doubt cardiac etiology. 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 Carrero attending, for determination of further workup and pain control. CT head with contrast (given MRI cannot be performed) to further workup cerebral edema. Check CT C-spine for neck pain and bilateral shoulder/arm pain. SCDs for DVT prophylaxis. Consider short course of steroids for current pain. Would recommend PPI for GI prophylaxis if starting steroids. Continue current home medications for chronic health problems. Case discussed with Dr. Carrero. Patient's care to be returned to his PCP at the [facility], ELDER Manzanares, on dismissal. 08/20/17 CT head with contrast reveals a right parietal lesion, with differential to include subacute infarct, metastatic disease/lymphoma, primary brain neoplasm versus abscess. Will consult Dr. Panchal for his expert opinion. Patient's neck and shoulder pain is significantly improved with steroids. This raises suspicion for diagnosis of PMR. At this point, would not proceed with ESR or CRP given that he has already started on steroids. If the symptoms resume following discontinuation of steroids, further evaluation could be pursued at that point. <Lakesha Carrero - Last Filed: 08/20/17 14:49> Objective Vital signs: Temperature 95.6 F L 08/20/17 07:30 Pulse Rate 55 L 08/20/17 07:30 Respiratory Rate 18 08/20/17 07:30 Blood Pressure 104/58 08/20/17 07:30 Pulse Oximetry 93 08/20/17 07:30 Height/Weight/BMI: Height 1.78 m Weight 70.5 kg Body Mass Index 22.1 Results - Labs CBC & Chem 7: 08/20/17 09:13 08/20/17 09:13 Assessment and Plan (1) Diffuse cerebral edema Current visit: Yes Status: Acute (2) Weakness of both arms Current visit: Yes Status: Acute Assessment and Plan: 08/20/2017-I reviewed this chart, the patient history, and the DUSTING AND BRUSHING MACHINE OPERATOR's/PA's documented findings as above. We discussed and formulated the assessment and plan as above with the additions below.-Dr. Carrero Patient states that his arm pains are much better. He feels like his weakness has improved. CT head with contrast was concerning for subacute infarct versus metastatic disease/lymphoma versus primary brain neoplasm versus abscess. Dr. Panchal did see the patient and was most concerned about glioblastoma. He does not have signs or symptoms of abscess/infectious process. He is eating and drinking well. He has not lost weight. He has no fevers chills or sweats. No nausea or vomiting. He denies any headaches. CT C-spine showed Findings: Alignment of the cervical spine is slightly straightened. No acute fractures identified. 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 Moderate to severe disk space narrowing at C5-C6 with mild disk height loss at C6-C7. No obvious central canal stenosis. Multilevel degenerative uncovertebral changes. No enhancing masses identified in the spinal canal. No lytic or blastic osseous lesions appreciated. Segmental analysis: C2-C3: No obvious disk herniation or central canal stenosis. No neural foraminal stenosis. C3-C4: No focal disk herniation or central canal stenosis. No neural foraminal stenosis. C4-C5: Degenerative facet and uncovertebral hypertrophy resulting in mild bilateral neural foraminal stenosis. No focal disk protrusion or central canal stenosis. C5-C6: Disk osteophyte complex slightly effacing the thecal sac without true central canal stenosis. Degenerative facet and uncovertebral degenerative change causing mild bilateral neural foraminal stenosis. C6-C7: No focal disk protrusion or central canal stenosis. Degenerative uncovertebral changes resulting in mild left and moderate right neural foraminal stenosis. C7-T1: Normal Impression: No acute fracture. Mild to moderate degenerative disk and facet disease in the mid to lower cervical spine. I did call and talk with neurosurgeon, Dr. Ruiz and discussed the patient' s finding on CT brain with him. He recommended stopping the patient's aspirin and recommended follow-up with him in his office on August 26 for an outpatient evaluation for his brain mass. I did also call and talk with Dr. Benites, patient's yarn man. He stated he was in agreement with holding off on aspirin at this point so that the patient could undergo brain biopsy if needed. He stated he did not need to see the patient prior to surgery as long as the patient remained cardiovascularly stable. Here, the patient is breathing well, lungs are clear, chest x-rays clear. Vital signs are stable. The patient denies any shortness of breath, chest discomfort, palpitations or lightheadedness. These recommendations were discussed with the patient, his significant other, and his daughter. Plan is for discharge to home on Decadron 4 mg twice a day. The patient is to discontinue aspirin. He is to take only Tylenol if needed for pain. He can continue all of his other usual home medications. He is not to drive. He was told of a slight risk for seizure with brain mass. If he should have any worsening of symptoms, he should hold his physician or return to the ER. CT C-spine showed Findings: Alignment of the cervical spine is slightly straightened. No acute fractures identified. 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 Moderate to severe disk space narrowing at C5-C6 with mild disk height loss at C6-C7. No obvious central canal stenosis. Multilevel degenerative uncovertebral changes. No enhancing masses identified in the spinal canal. No lytic or blastic osseous lesions appreciated. Segmental analysis: C2-C3: No obvious disk herniation or central canal stenosis. No neural foraminal stenosis. C3-C4: No focal disk herniation or central canal stenosis. No neural foraminal stenosis. C4-C5: Degenerative facet and uncovertebral hypertrophy resulting in mild bilateral neural foraminal stenosis. No focal disk protrusion or central canal stenosis. C5-C6: Disk osteophyte complex slightly effacing the thecal sac without true central canal stenosis. Degenerative facet and uncovertebral degenerative change causing mild bilateral neural foraminal stenosis. C6-C7: No focal disk protrusion or central canal stenosis. Degenerative uncovertebral changes resulting in mild left and moderate right neural foraminal stenosis. C7-T1: Normal Impression: No acute fracture. Mild to moderate degenerative disk and facet disease in the mid to lower cervical spine. Hospital Course Summary Disclaimer: The visit summary below is not to be considered part of the above Progress Note.
--- NOTE | 2017-08-20 13:34 | Consultation ---
DATE OF CONSULTATION 08/20/[address] Carrero CHIEF COMPLAINT The patient's chief complaint is left upper extremity weakness. HISTORY OF PRESENT ILLNESS The patient is an 82-year-old male with history of coronary artery disease, congestive heart failure, hyperlipidemia, pacemaker, COPD and BPH. The patient presented with insidious onset left upper extremity weakness for the past 2 weeks. He also complains of mild right upper extremity weakness. He has had no other symptoms of numbness, headache or visual disturbances. The patient had a CT scan of the brain that showed a possible brain lesion in the right parietal head region. This was followed by a CT with contrast that showed a ring-enhancing lesion affecting the right parietal head region. This has been infiltrating the brain in different directions and it is surrounded by edema. It is highly suspicious for a primary brain tumor. The patient's symptoms have decreased by the usage of Decadron. He denies having any headache at present time. His weakness is slightly better compared to admission time. EXAM On physical examination the patient was awake, alert, oriented x 3. Pupils were round, reactive and equal. Funduscopic examination was unremarkable. Speech was fluent. Motor examination in the right upper extremity was 5-/4 and in left upper extremity it was 4+/5. In the lower extremities it was 5/5. Sensory examination was symmetrical for light touch, pinprick and temperature sensation. Deep tendon reflexes were 2/4. Coordination for [id number] was slower on the left compared to the right. Gait was steady and slow. ASSESSMENT 1. Left-sided weakness progressing over a 2-week period associated with an enhancing cystic lesion in the right parietal head region. This can be highly suspicious for a primary brain tumor versus abscess. The patient has no prior history of stroke or left-sided weakness. PLAN 1. The patient needs to be referred to see a neurosurgeon as an inpatient or outpatient setting if he is able to see him within a week period. 2. Continue Decadron 4 mg p.o. b.i.d. to help with the patient's symptoms of weakness and headache. 3. The patient was advised not to drive or work until his diagnosis is further confirmed. JAYE
--- NOTE | 2017-08-20 13:35 | Discharge Instructions ---
Discharge Plan - Med Rec/Dispo Referrals/Follow Up: Pavan Ruiz [Physician] - (Biopsy appointment with Dr. Pavan Luna on 08/26/17 at 12:00pm. Check-in at 11:30am) [place] Instructions: Weakness (GEN) Additional Instructions: Call your primary provider at the [facility] and set up a follow-up appointment to touch base if you don't have an appointment already scheduled in the next month. Take the disc with you to your appointment with Dr. Rosas. Prescriptions: New Acetaminophen [Tylenol] 500 mg PO Q5H PRN tablet PRN Reason: Discomfort Dexamethasone [Decadron] 4 mg PO Q12HR #28 tab Continue Atorvastatin Calcium 10 mg PO HS #0 Metoprolol Tartrate 50 mg PO BIDWM #0 Potassium Chloride 10 meq PO WB #0 Phenylephrine HCl [Nasal Decongestant PE] 10 mg PO Q6H PRN PRN Reason: Allergy Symptoms Tamsulosin [Flomax] 0.4 mg PO HS Budesonide/Formoterol 80/4.5 [Symbicort Inhaler] 2 puff INH BID PRN #0 gm PRN Reason: PRN ORDERS Bumetanide 0.5 mg PO DAILY #0 Finasteride [Proscar] 5 mg PO DAILY Discontinued Aspirin 325 mg PO DAILY #0 tab Discharge Instructions/Outpatient Orders: Final Provider Discharge Instructions Location: Determined By Patient - Disposition 01 Discharged Home, Self-Care
--- NOTE | 2017-08-20 15:20 | Discharge Summary ---
<Mariangel Carbajal - Last Filed: 08/20/17 15:16> Discharge Information Date of admission: 08/19/17 15:47 Anticipated date of discharge: 08/20/17 Attending Physician: Lakesha Carrero MD Primary care physician: OTHER Consults: 08/20/17 11:47 Physician Consult [CONS] Routine Consulting Provider: Jaqui Panchal Reason For Exam: brain mass? vs other - Discharge Diagnosis (1) Diffuse cerebral edema Status: Acute Discharge Diagnosis: Cerebral edema-suspect neoplasm Bilateral arm weakness/pain - doubt cardiac etiology. 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 Donovan) COPD (previous smoker and asbestos lung damage) BPH-not a surgical candidate for TURP (self catheterizes) (2) Weakness of both arms Status: Acute - Laboratory Labs: 08/20/17 09:13 08/20/17 09:13 - Radiology Radiology: Type of Exam(s): CT cervical spine w con Reason for Exam(s): bilateral arm pain, weakness Addendum: The exam performed was actually a cervical spine CT with contrast. Addendum to technique: Axial postcontrast CT imaging of the cervical spine was performed with coronal and sagittal two-dimensional reformats. Contrast: Omnipaque 300 74mL Automated Exposure Control and Iterative Reconstruction dose reducing techniques were utilized. Findings: Alignment of the cervical spine is slightly straightened. No acute fractures identified. 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 Moderate to severe disk space narrowing at C5-C6 with mild disk height loss at C6-C7. No obvious central canal stenosis. Multilevel degenerative uncovertebral changes. No enhancing masses identified in the spinal canal. No lytic or blastic osseous lesions appreciated. Segmental analysis: C2-C3: No obvious disk herniation or central canal stenosis. No neural foraminal stenosis. C3-C4: No focal disk herniation or central canal stenosis. No neural foraminal stenosis. C4-C5: Degenerative facet and uncovertebral hypertrophy resulting in mild bilateral neural foraminal stenosis. No focal disk protrusion or central canal stenosis. C5-C6: Disk osteophyte complex slightly effacing the thecal sac without true central canal stenosis. Degenerative facet and uncovertebral degenerative change causing mild bilateral neural foraminal stenosis. C6-C7: No focal disk protrusion or central canal stenosis. Degenerative uncovertebral changes resulting in mild left and moderate right neural foraminal stenosis. C7-T1: Normal Impression: No acute fracture. Mild to moderate degenerative disk and facet disease in the mid to lower cervical spine. . PROCEDURE: CT neck w con: Technique: Axial CT images through the neck were performed with contrast. Coronal and sagittal reformatted images were also obtained. Automated Exposure Control and Iterative Reconstruction dose reducing techniques were utilized. Contrast: 74 mL Omnipaque 300 FINDINGS: Moderate centrilobular emphysema in the lung apices. No adenopathy or mass seen in the neck. No mucosal based mass lesions appreciated. Bony structures show degenerative change in the cervical spine. No fluid collections or hematoma identified. Impression: No mass or adenopathy seen in the neck. Emphysema. PROCEDURE: CT head/brain wo con: Encounter: Initial Comparison: None Technique: Axial CT images through the head were performed without contrast. Iterative Reconstruction dose reducing technique was utilized. FINDINGS: There is vasogenic edema in the right posterior frontal and parietal lobes best seen on images 25 through 32. No acute intracranial hemorrhage. Slight effacement of the posterior horn of the right lateral ventricle without evidence of acute midline shift. Mild generalized atrophy. No calvarial fracture. The paranasal sinuses are clear as are the mastoid air cells. Impression: Vasogenic edema in the right frontal and lobes raising suspicion for an underlying neoplastic or metastatic process. Cerebral abscess or acute infection would also be within the differential. Recommend contrast enhanced brain MRI for further evaluation. Findings were discussed with the ordering clinician at 1350 on August 19, 2017. PROCEDURE: CT head/brain w con: Encounter: Initial Comparison: Noncontrast head CT from earlier in the same day Technique: Axial CT imaging through the head was performed after administration of intravenous contrast. Findings: The area of vasogenic edema seen on CT represents an irregular ring-enhancing lesion measuring 2.8 x 2.8 cm in diameter on axial image #34. This has internal low attenuation. No additional enhancing masses identified. No acute intracranial hemorrhage. Ventricles are stable. No mass effect or midline shift. Impression: Ring-enhancing right parietal lesion. Differential diagnosis includes subacute infarct, metastatic disease/lymphoma, primary brain neoplasm and abscess. PROCEDURE: CHEST 2-VIEWS UPRIGHT (PA & LAT) Encounter: Initial COMPARISON: December 06, 2015 FINDINGS: Prior CABG with left pacemaker defibrillator. Chronic mild hyperinflation. Right basilar scarring. No focal pneumonia, pleural effusion or pneumothorax. Heart size and mediastinal contours are stable. Pulmonary vascularity is unchanged with prominent central pulmonary arteries possibly due to pulmonary artery hypertension. Impression: Stable chest without acute cardiopulmonary disease. History of Present Illness HPI: Patient is an 82-year-old male who presents to the emergency room at the insistence of his "lady friend." She reports she was notified today by his boss that he had not shown up for work. 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 When he didn't show up for work, his boss notified his girlfriend. She went to check on him and he complained of bilateral shoulder and arm weakness and neck pain. She reports that he is "not a complainer." He states he is not sure if it was weakness or pain, but that he was unable to reach up to turn on the turn signal in his car. He states he's had worsening symptoms over the past 2 weeks. Describes it as a "burning" or "shocking" sensation in his upper arms and shoulders. States he thinks symptoms are worse when he moves. He has had a history of bilateral rotator cuff repairs and has degenerative changes to the shoulders bilaterally. He states he takes aspirin every day and sometimes twice a day for his pain. Recently he has had more numbness in the arms. He's not had any chest pain or shortness of breath. In the emergency room his workup included a chest x-ray showing chronic mild hyperinflation with no acute changes. CT head showed "vasogenic edema in the right frontal lobe raising suspicion for an underlying neoplastic or metastatic process. Cerebral abscess or acute infection also be within the differential." MRI brain with contrast is recommended, however, patient cannot undergo this evaluation due to his BiV-ICD. His labs showed mild normocytic anemia with hemoglobin of 13. Sodium was slightly elevated at 145. Troponin was negative and UA was negative. Objective Vital signs: Temperature 95.6 F L 08/20/17 07:30 Pulse Rate 55 L 08/20/17 07:30 Respiratory Rate 18 08/20/17 07:30 Blood Pressure 104/58 08/20/17 07:30 Pulse Oximetry 93 08/20/17 07:30 Height/Weight/BMI: Height 1.78 m Weight 70.5 kg Body Mass Index 22.1 - Constitutional Present: well nourished, well developed - Routine HEENT Exam Eye: Present: EOMI ENT: Present: mucous membranes moist - Routine Respiratory Exam Present: CTA bilaterally. Absent: wheezes - Routine Cardiovascular Exam Present: RRR. Absent: murmur - Routine Abdominal Exam Present: soft, normoactive bowel sounds, non distended. Absent: tenderness - Routine Extremities Exam Present: no edema, normal capillary refill - Routine Skin Exam Present: dry, warm - Routine Neurological Exam Present: alert, oriented X3 - Routine Lymphatic Exam Lymphatic: Absent: adenopathy - Routine Psychiatric Exam Present: normal affect, normal thought process Hospital Course This is a general summary of the patient's hospital course. For more details refer to the complete medical record. Patient was initially brought in by his girlfriend to the emergency room for evaluation of bilateral shoulder pain and weakness. His labs and chest x-ray were essentially negative. CT head revealed a probable brain mass. CT of the C- spine showed degenerative change. Patient is not a candidate for MRI because of his defibrillator. Patient was started on Decadron and had significant improvement in his bilateral shoulder pain. He will follow-up with Dr. Hamlin for consult to discuss biopsy. He'll hold aspirin and avoid NSAIDs. He is not to drive or work until released by neuro. Hospital course: 08/19/17-hospital observation Admit to observation under the hospitalist service, Dr. Carrero attending, for determination of further workup and pain control. CT head with contrast (given MRI cannot be performed) to further workup cerebral edema. Check CT C-spine for neck pain and bilateral shoulder/arm pain. SCDs for DVT prophylaxis. Consider short course of steroids for current pain. Would recommend PPI for GI prophylaxis if starting steroids. Continue current home medications for chronic health problems. Case discussed with Dr. Carrero. Patient's care to be returned to his PCP at the [facility], ELDER Manzanares, on dismissal. 08/20/17 Patient's neck and shoulder pain is significantly improved with steroids. This raises suspicion for diagnosis of PMR. At this point, would not proceed with ESR or CRP given that he has already started on steroids. If the symptoms resume following discontinuation of steroids, further evaluation could be pursued at that point. CT head with contrast reveals a right parietal lesion, with differential to include subacute infarct, metastatic disease/lymphoma, primary brain neoplasm versus abscess. Dr. Carrero discussed with Dr. Panchal. He suspects this is a glioblastoma. Patient is scheduled to see Dr. Ruiz for consult on August 26. He was instructed not to drive or work until further evaluation. He is to hold aspirin and not take any [id number] NSAIDs. Continue steroids until visit with Dr. Ruiz. Dr. Ruzi to give instructions on further dosage at that appointment. Time spent with patient: discharge greater than 30 minutes Discharge Plan - Med Rec/Dispo Referrals/Follow Up: Pavan Ruiz [Physician] - (Biopsy appointment with Dr. Pavan Luna on 08/26/17 at 12:00pm. Check-in at 11:30am) [facility] Instructions: Weakness (GEN) Additional Instructions: Call your primary provider at the [facility] and set up a follow-up appointment to touch base if you don't have an appointment already scheduled in the next month. Take the disc with you to your appointment with Dr. Rosas. Prescriptions: New Acetaminophen [Tylenol] 500 mg PO Q5H PRN tablet PRN Reason: Discomfort Dexamethasone [Decadron] 4 mg PO Q12HR #28 tab Continue Atorvastatin Calcium 10 mg PO HS #0 Metoprolol Tartrate 50 mg PO BIDWM #0 Potassium Chloride 10 meq PO WB #0 Phenylephrine HCl [Nasal Decongestant PE] 10 mg PO Q6H PRN PRN Reason: Allergy Symptoms Tamsulosin [Flomax] 0.4 mg PO HS Budesonide/Formoterol 80/4.5 [Symbicort Inhaler] 2 puff INH BID PRN #0 gm PRN Reason: PRN ORDERS Bumetanide 0.5 mg PO DAILY #0 Finasteride [Proscar] 5 mg PO DAILY Discontinued Aspirin 325 mg PO DAILY #0 tab Discharge Instructions/Outpatient Orders: Final Provider Discharge Instructions Location: Determined By Patient - Disposition 01 Discharged Home, Self-Care <Lakesha Carrero - Last Filed: 08/20/17 17:02> Discharge Information Date of admission: 08/19/17 15:47 Attending Physician: Lakesha Carrero MD Primary care physician: OTHER Consults: 08/20/17 11:47 Physician Consult [CONS] Routine Consulting Provider: Jaqui Panchal Reason For Exam: brain mass? vs other Ordering Provider has Notified Dental Assisting Instructor: Yes - Discharge Diagnosis (1) Diffuse cerebral edema Status: Acute (2) Weakness of both arms Status: Acute - Laboratory Labs: 08/20/17 09:13 08/20/17 09:13 Objective Vital signs: Temperature 95.6 F L 08/20/17 07:30 Pulse Rate 55 L 08/20/17 07:30 Respiratory Rate 18 08/20/17 07:30 Blood Pressure 104/58 08/20/17 07:30 Pulse Oximetry 93 08/20/17 07:30 Height/Weight/BMI: Height 1.78 m Weight 70.5 kg Body Mass Index 22.1 Hospital Course This is a general summary of the patient's hospital course. For more details refer to the complete medical record. Hospital course: 08/20/2017-I reviewed this chart, the patient history, and the VICE PRESIDENT PROCESS's/PA's documented findings as above. We discussed and formulated the assessment and plan as above with the additions below.-Dr. Carrero The patient stated that his weakness and shoulder pain was improved today. He is up and walking around without difficulties. He is eating and drinking well. I did consult Dr. Panchal regarding the patient's abnormal CT. He states this is most likely a brain mass and most likely glioblastoma. He recommended referral to neurosurgery. He also recommended continuing on Decadron for edema. He stated and anti- seizure medications were not indicated empirically. I did call Dr. Ruiz and he recommended discontinuation of aspirin which she will need to be off for 1-2 weeks prior to See. He plans to see him in his office this coming Friday and will evaluate him and determine if surgery is indicated. I did call Dr. Benites, the patient's vibratory pile driver and notified him of recommendations to be off of aspirin and he was in agreement. He said the patient can proceed with surgery if Dr. Ruiz decides surgery is necessary. He stated that the patient does not need to see him prior to surgery. Vital signs are stable today. On exam today the patient is alert and in no acute distress. Chest clear to auscultation. Cardiovascular reveals a regular rate and rhythm. Abdomen is soft and nontender. Extremities are free of edema. All of the above plans were discussed with the patient, his significant other, and his daughter. They are in agreement. They understand the patient is not able to drive. His family and friends will check on him several times a day and he lives next door to his brother who can also assist him. They understand he should seek medical attention if he starts feeling worse especially with confusion, headaches, chest pain, shortness of breath or lightheadedness.
[2017-08-20] MEDS ORDERED: DEXAMETHASONE 4 MG TABLET PO SCH (21:00)
== END 2017-08-20 15:00 | disposition home or self-care (01) ==
LOC: MED 12:37 → ED 12:37 → MED 16:10
PROVIDERS: ADMIT Internal Medicine; ATTEND Internal Medicine